=== PATIENT | female | born 1940 | race Caucasian/White ===

== ENCOUNTER 2016-11-24 15:40 | Inpatient (IN) | payer MEDICARE, BC ==
[~2016-11-24] VITALS: Ht 157.5 cm; Wt 61.9 kg
[2016-11-24 16:03] VITALS: BP 112/81; PULSE 110; RESP 16; TEMP 98.4; O2SAT 96
[2016-11-24 17:49] VITALS: BP 145/83; PULSE 88; RESP 20; O2SAT 98
[2016-11-24] MEDS ORDERED: CIPR500T2 PO (17:55)
[2016-11-24] MEDS ORDERED: LOSA100T PO (17:55)
[2016-11-24] MEDS ORDERED: METR-1 PO (17:55)
[2016-11-24 18:20] LABS: AUTOMATED NEUTROPHIL # 15.7 TH/MM3 (1.8-7.7); BASOPHIL # 0.1 TH/MM3 (0-0.2); BASOPHIL % 0.4 % (0.0-2.0); EOSINOPHIL # 0.1 TH/MM3 (0-0.4); EOSINOPHIL % 0.3 % (0.0-4.0); HEMATOCRIT 40.4 % (35.0-46.0); LYMPH % 9.9 % (9.0-44.0); LYMPHOCYTE # 1.9 TH/MM3 (1.0-4.8); MEAN CORPUSCULAR HEMOGLOBIN 28.7 PG (27.0-34.0); NEUT % 84.4 % (16.0-70.0); PLATELET COUNT 483 TH/MM3 (150-450); RED BLOOD COUNT 4.64 MIL/MM3 (4.00-5.30); RED CELL DISTRIBUTION WIDTH 13.9 % (11.6-17.2); WHITE BLOOD COUNT 18.7 TH/MM3 (4.0-11.0)
[2016-11-24 18:22] LABS: CHLORIDE 95 MEQ/L (98-107); POTASSIUM 3.6 MEQ/L (3.5-5.1); SODIUM (NA) 136 MEQ/L (136-145)
[2016-11-24 18:23] LABS: HEMO FLAGS DIFF FINAL
[2016-11-24 18:25] LABS: ANION GAP 11 MEQ/L (5-15); APTT (PATIENT) 25.7 SEC (24.3-30.1); BICARBONATE 30.2 MEQ/L (21.0-32.0); BLOOD UREA NITROGEN 18 MG/DL (7-18); INTERNATIONAL NORMALIZED RATIO 1.2 RATIO; PROTHROMBIN TIME - PATIENT 13.4 SEC (9.8-11.6)
[2016-11-24 18:28] LABS: ALT (GPT) 14 U/L (10-53); AST (GOT) 15 U/L (15-37); GLOMERULAR FILTRATION RATE 40 ML/MIN (>89)
[2016-11-24 18:30] LABS: TOTAL BILIRUBIN ADULT 0.4 MG/DL (0.2-1.0)
[2016-11-24 18:31] LABS: ALKALINE PHOSPHATASE 123 U/L (45-117)
[2016-11-24] MEDS ORDERED: SODIUM CHLOR 0.9% 1000 ML INJ 1,000 ML IV SCH (18:40)
[2016-11-24] MEDS ORDERED: MORPHINE SULFATE 4 MG/ML INJ IV PUSH ONE (18:45)
[2016-11-24] MEDS ORDERED: SODIUM CHLORIDE 0.9% FLUSH 5 ML FLUSH IVF PRN (18:45)
[2016-11-24] MEDS ORDERED: ONDANSETRON HCL 4 MG/2 ML VIAL IVP ONE (18:45)
[2016-11-24] MEDS ORDERED: IODIXANOL 320 MG/ML 10 ML VIAL (for Rad CT) IV ONE (19:28)
[2016-11-24 19:32] VITALS: BP 155/76; PULSE 88; RESP 16; TEMP 98.9; O2SAT 98
--- NOTE | 2016-11-24 19:41 | RADHPO ---
EXAM DATE/TIME: 11/24/2016 19:03 [place] COMPARISON: No previous studies available for comparison. INDICATIONS : Left lower abdominal pain. IV CONTRAST: 50 cc Visipaque (iodixanol) IV ORAL CONTRAST: No oral contrast ingested. RADIATION DOSE: 6.61 CTDIvol (mGy) MEDICAL HISTORY : Hypertension. Diverticulitis. SURGICAL HISTORY : rectal fistula. ENCOUNTER: Initial ACUITY: 2 weeks PAIN SCALE: 9/10 LOCATION: Left lower quadrant TECHNIQUE: Volumetric scanning of the abdomen and pelvis was performed. Using automated exposure control and ad justment of the mA and/or kV according to patient size, radiation dose was kept as low as reasonably achievable to obtain optimal diagnostic quality images. FINDINGS: The lung bases are clear with intact bony structures and extensive degenerative facet arthritic briggs es of the lower lumbar spine. Major retroperitoneal pelvic and inguinal vascular structures are hoang l other than atherosclerotic calcifications with no evidence of adenopathy. Bilateral kidneys are nor mal as are bilateral adrenal glands spleen and pancreas. Liver reveals multiple low density lesions c onsistent with cysts largest right lobe towards the dome 2.5 cm x 4 cm in size. The common bile duct measures 1.1 cm in width dilated without specific etiology. There are diverticuli of the colon and th riri are most extensive in the distal descending and proximal sigmoid region with a apparent 7 x 5.6 c m soft tissue mass air fluid level within this probable abscess contiguous with the: Of the left lower pelvic wall extending towards the inguinal region. CONCLUSION: Multiple abnormalities as described above. Most significant is a 7 x 5.6 cm soft tissue mass left low er pelvic wall with air fluid level in the central region and inguinal canal which is contiguous with the colon which has diverticular disease. This is most consistent with abscess formation. Joe Vincent MD on November 24, 2016 at 19:34 Board Certified Radiologist. This report was verified electronically.
--- NOTE | 2016-11-24 19:49 | PD ---
HPI Chief Complaint: Abdominal Pain Time Seen by Provider: 18:24 Travel History International Travel<30 days: No Contact w/Intl Traveler<30days: No Traveled to known affect area: No History of Present Illness HPI This 76-year-old woman who presents to the emergency room claiming of lower abdominal pain ongoing for several weeks. She's had loose stools and diarrhea as well. No fevers or chills. Some nausea and vomiting. Some decreased appetite. She saw her primary physician who treated her empirically for diverticulitis with Cipro and Flagyl about a week ago. Over the past couple days she's had worsening symptoms including worsening pain, worsening diarrhea, worsening nausea. She has presented to the emergency department. She has no history of any abdominal surgeries. No history of diverticulitis in the past. History Past Medical History Narrative Medical Hypertension Tetanus Vaccination: > 5 Years Influenza Vaccination: No Menopausal: Yes Social History Alcohol Use: No Tobacco Use: No Allergies-Medications (Allergen,Severity, Reaction): Coded Allergies: No Known Allergies (Unverified , 11/24/16) Reported Meds & Prescriptions Reported Meds & Active Scripts Active Reported Ciprofloxacin (Ciprofloxacin HCl) 500 Mg Tab 500 Mg PO BID Flagyl (Metronidazole) 500 Mg Tab 500 Mg PO TID Losartan (Losartan Potassium) 100 Mg Tab 100 Mg PO DAILY Review of Systems Except as stated in HPI: all other systems reviewed are Neg Physical Exam Narrative GENERAL: Well-appearing 76-year-old woman, uncomfortable but nontoxic. SKIN: Warm and dry. HEAD: Atraumatic. Normocephalic. EYES: Pupils equal and round. No scleral icterus. No injection or drainage. ENT: No nasal bleeding or discharge. Mucous membranes pink and moist. NECK: Trachea midline. No JVD. CARDIOVASCULAR: Regular rate and rhythm. No murmur appreciated. RESPIRATORY: No accessory muscle use. Clear to auscultation. Breath sounds equal bilaterally. GASTROINTESTINAL: Abdomen soft, not distended. The low four-quadrant is a palpable firm mass that seems suggestive of a ventral or left somewhat superior inguinal hernia versus abdominal mass. It is exquisitely tender. MUSCULOSKELETAL: No obvious deformities. No clubbing. No cyanosis. No edema. NEUROLOGICAL: Awake and alert. No obvious cranial nerve deficits. Motor grossly within normal limits. Normal speech. PSYCHIATRIC: Appropriate mood and affect; insight and judgment normal. Data Data Last Documented VS Vital Signs Date Time Temp Pulse Resp B/P Pulse Ox O2 Delivery O2 Flow Rate FiO2 11/24/16 19:32 98.9 88 16 155/76 98 Room Air Orders Complete Blood Count With Diff (11/24/16 17:43) Comprehensive Metabolic Panel (11/24/16 17:43) Act Partial Throm Time (Ptt) (11/24/16 17:43) Prothrombin Time / Inr (Pt) (11/24/16 17:43) Ct Abd/Pel W Iv Contrast(Rout) (11/24/16 18:40) Iv Access Insert/Monitor (11/24/16 18:40) NPO (11/24/16 18:40) Morphine Inj (Morphine Inj) (11/24/16 18:45) Ondansetron Inj (Zofran Inj) (11/24/16 18:45) Sodium Chlor 0.9% 1000 Ml Inj (Ns 1000 M (11/24/16 18:40) Sodium Chloride 0.9% Flush (Ns Flush) (11/24/16 18:45) Iodixanol 320 Inj (Rad Ct) (Visipaque 32 (11/24/16 19:28) Labs Laboratory Tests Test 11/24/16 18:00 White Blood Count 18.7 TH/MM3 Red Blood Count 4.64 MIL/MM3 Hemoglobin 13.3 GM/DL Hematocrit 40.4 % Mean Corpuscular Volume 87.0 FL Mean Corpuscular Hemoglobin 28.7 PG Mean Corpuscular Hemoglobin 33.0 % Concent Red Cell Distribution Width 13.9 % Platelet Count 483 TH/MM3 Mean Platelet Volume 9.7 FL Neutrophils (%) (Auto) 84.4 % Lymphocytes (%) (Auto) 9.9 % Monocytes (%) (Auto) 5.0 % Eosinophils (%) (Auto) 0.3 % Basophils (%) (Auto) 0.4 % Neutrophils # (Auto) 15.7 TH/MM3 Lymphocytes # (Auto) 1.9 TH/MM3 Monocytes # (Auto) 0.9 TH/MM3 Eosinophils # (Auto) 0.1 TH/MM3 Basophils # (Auto) 0.1 TH/MM3 CBC Comment DIFF FINAL Differential Comment Prothrombin Time 13.4 SEC Prothromb Time International 1.2 RATIO Ratio Activated Partial 25.7 SEC Thromboplast Time Sodium Level 136 MEQ/L Potassium Level 3.6 MEQ/L Chloride Level 95 MEQ/L Carbon Dioxide Level 30.2 MEQ/L Anion Gap 11 MEQ/L Blood Urea Nitrogen 18 MG/DL Creatinine 1.30 MG/DL Estimat Glomerular Filtration 40 ML/MIN Rate Random Glucose 124 MG/DL Calcium Level 9.4 MG/DL Total Bilirubin 0.4 MG/DL Aspartate Amino Transf 15 U/L (AST/SGOT) Alanine Aminotransferase 14 U/L (ALT/SGPT) Alkaline Phosphatase 123 U/L Total Protein 7.7 GM/DL Albumin 3.3 GM/DL [facility] Medical Decision Making Medical Screen Exam Complete: Yes Emergency Medical Condition: Yes Interpretation(s) Labs show some leukocytosis. Differential Diagnosis Incarcerated hernia, perforated diverticulitis, mass, torsion, other Narrative Course Medical decision making This 76-year-old woman with low four-quadrant abdominal pain is been ongoing for several weeks, worsening over the past several days, with a firm tender mass in the left lower abdomen suggestive of either mass or hernia or abscess. Labs were obtained. Patient was sent for CT imaging which was pending. Patient was signed out to the oncoming provider at 7 PM to follow-up on results of CT imaging and likely surgical consultation. Ji Estrada MD Nov 24, 2016 19:49
--- NOTE | 2016-11-24 20:16 | PD ---
Physical Exam Time Seen by Provider: 20:[address] Estrada with this patient with me to check the results of the CT abdomen/ pelvis and make a disposition, likely admission. Data Data Last Documented VS Vital Signs Date Time Temp Pulse Resp B/P Pulse Ox O2 Delivery O2 Flow Rate FiO2 11/24/16 19:32 98.9 88 16 155/76 98 Room Air Orders Complete Blood Count With Diff (11/24/16 17:43) Comprehensive Metabolic Panel (11/24/16 17:43) Act Partial Throm Time (Ptt) (11/24/16 17:43) Prothrombin Time / Inr (Pt) (11/24/16 17:43) Ct Abd/Pel W Iv Contrast(Rout) (11/24/16 18:40) Iv Access Insert/Monitor (11/24/16 18:40) NPO (11/24/16 18:40) Morphine Inj (Morphine Inj) (11/24/16 18:45) Ondansetron Inj (Zofran Inj) (11/24/16 18:45) Sodium Chlor 0.9% 1000 Ml Inj (Ns 1000 M (11/24/16 18:40) Sodium Chloride 0.9% Flush (Ns Flush) (11/24/16 18:45) Iodixanol 320 Inj (Rad Ct) (Visipaque 32 (11/24/16 19:28) Piperacil-Tazo 3.375 Gm Premix (Zosyn 3. (11/24/16 20:30) Labs Laboratory Tests Test 11/24/16 18:00 White Blood Count 18.7 TH/MM3 Red Blood Count 4.64 MIL/MM3 Hemoglobin 13.3 GM/DL Hematocrit 40.4 % Mean Corpuscular Volume 87.0 FL Mean Corpuscular Hemoglobin 28.7 PG Mean Corpuscular Hemoglobin 33.0 % Concent Red Cell Distribution Width 13.9 % Platelet Count 483 TH/MM3 Mean Platelet Volume 9.7 FL Neutrophils (%) (Auto) 84.4 % Lymphocytes (%) (Auto) 9.9 % Monocytes (%) (Auto) 5.0 % Eosinophils (%) (Auto) 0.3 % Basophils (%) (Auto) 0.4 % Neutrophils # (Auto) 15.7 TH/MM3 Lymphocytes # (Auto) 1.9 TH/MM3 Monocytes # (Auto) 0.9 TH/MM3 Eosinophils # (Auto) 0.1 TH/MM3 Basophils # (Auto) 0.1 TH/MM3 CBC Comment DIFF FINAL Differential Comment Prothrombin Time 13.4 SEC Prothromb Time International 1.2 RATIO Ratio Activated Partial 25.7 SEC Thromboplast Time Sodium Level 136 MEQ/L Potassium Level 3.6 MEQ/L Chloride Level 95 MEQ/L Carbon Dioxide Level 30.2 MEQ/L Anion Gap 11 MEQ/L Blood Urea Nitrogen 18 MG/DL Creatinine 1.30 MG/DL Estimat Glomerular Filtration 40 ML/MIN Rate Random Glucose 124 MG/DL Calcium Level 9.4 MG/DL Total Bilirubin 0.4 MG/DL Aspartate Amino Transf 15 U/L (AST/SGOT) Alanine Aminotransferase 14 U/L (ALT/SGPT) Alkaline Phosphatase 123 U/L Total Protein 7.7 GM/DL Albumin 3.3 GM/DL [facility] Medical Record Reviewed: Yes Supervised Visit with ANA LUISA: Yes Interpretation(s) The CT abdomen/pelvis shows extensive diverticuli and an apparent 7 x 5.6 cm soft tissue mass with air-fluid level in the central region. The radiologist felt this was an abscess. Differential Diagnosis Abdominal hernia, intra-abdominal abscess, abdominal wall abscess, diverticular abscess Narrative Course The patient appears to have a Pelvic wall abscess. This likely started as a diverticular abscess. Plan: I discussed the patient with Dr. Shankar and he will operate on this tomorrow morning. The patient is to be nothing by mouth tonight and will be [facility]. I discussed the patient with nurse practitioner Aida and she instructed me to admit the patient to Dr. Shaw. Physician Communication Physician Communication I discussed the patient with Dr. Shankar and nurse practitioner Aida. Diagnosis Primary Impression: Abdominal wall abscess Additional Impression: Diverticulosis of colon Admitting Information Admitting Physician Requests: Admit Kin Blum MD Nov 24, 2016 20:16
[2016-11-24] MEDS ORDERED: NALOXONE HCL 0.4 MG/ML AMP IV PRN (20:30)
[2016-11-24] MEDS ORDERED: SODIUM CHLORIDE 0.9% FLUSH 5 ML FLUSH FLUSH PRN (20:30)
[2016-11-24] MEDS ORDERED: ACETAMINOPHEN 325 MG TAB PO PRN (20:30)
[2016-11-24] MEDS ORDERED: PIPERACIL-TAZO 3.375 GM PREMIX 50 ML IV ONE (20:30)
[2016-11-24 20:34] VITALS: BP 136/67; PULSE 94; RESP 18; O2SAT 96
[2016-11-24] MEDS: SODIUM CHLORIDE 0.9% FLUSH 5 ML FLUSH FLUSH SCH (21:00)
[2016-11-24] MEDS ORDERED: MORPHINE SULFATE 4 MG/ML INJ IV PRN (21:15)
[2016-11-24] MEDS ORDERED: VANCOMYCIN INJ 1,000 MG in SODIUM CHLOR 0.9% 250 ML INJ 250 ML IV ONE (21:30)
[2016-11-24] MEDS: SODIUM CHLOR 0.9% 1000 ML INJ 1,000 ML IV SCH (22:04)
[2016-11-24 22:11] VITALS: BP 120/59; PULSE 73; RESP 16; TEMP 98.6; O2SAT 98
[2016-11-24] MEDS: ONDANSETRON HCL 4 MG/2 ML VIAL IVP PRN (23:14)
[2016-11-24 23:16] VITALS: BP 118/59; PULSE 70; RESP 16; O2SAT 98
[2016-11-25] VITALS (8 sets, daily range): BP systolic 108–127; BP diastolic 53–67; PULSE 62–78; RESP 16–22; TEMP 96–97.3; O2SAT 93–98
[2016-11-25] MEDS ORDERED: INSULIN HUMAN REGULAR 1,000 UNITS/10 ML VIAL SQ PRN (02:15)
[2016-11-25 06:05] LABS: AUTOMATED NEUTROPHIL # 11.3 TH/MM3 (1.8-7.7); BASOPHIL # 0.1 TH/MM3 (0-0.2); BASOPHIL % 0.6 % (0.0-2.0); EOSINOPHIL % 0.3 % (0.0-4.0); HEMATOCRIT 33.5 % (35.0-46.0); HEMO FLAGS DIFF FINAL; LYMPH % 11.8 % (9.0-44.0); LYMPHOCYTE # 1.7 TH/MM3 (1.0-4.8); MEAN CELL VOLUME 87.2 FL (80.0-100.0); MEAN CORPUSCULAR HGB CONC 32.2 % (32.0-36.0); MONO % 7.7 % (0.0-8.0); NEUT % 79.6 % (16.0-70.0); PLATELET COUNT 349 TH/MM3 (150-450); RED BLOOD COUNT 3.84 MIL/MM3 (4.00-5.30); RED CELL DISTRIBUTION WIDTH 14.4 % (11.6-17.2); WHITE BLOOD COUNT 14.2 TH/MM3 (4.0-11.0)
[2016-11-25] MEDS: PIPERACIL-TAZO 3.375 GM PREMIX 50 ML IV SCH ×3 (06:24→21:34)
[2016-11-25 06:26] LABS: BICARBONATE 27.1 MEQ/L (21.0-32.0); POTASSIUM 3.6 MEQ/L (3.5-5.1)
[2016-11-25] MEDS: SODIUM CHLORIDE 0.9% FLUSH 5 ML FLUSH FLUSH SCH ×2 (09:00→21:35)
[2016-11-25] MEDS: SODIUM CHLORID 0.9% 500 ML IV SCH (09:15)
[2016-11-25] MEDS: LACTATED RINGER'S 1000 ML IV SCH (09:15)
[2016-11-25] MEDS ORDERED: BUPIVACAINE/EPINEPHRINE 0.5% PF 30 ML VIAL ONE (09:52)
[2016-11-25] MEDS ORDERED: MIDAZOLAM HCL 2 MG/2 ML VIAL ONE (10:06)
[2016-11-25] MEDS ORDERED: FAMOTIDINE 20 MG/2 ML VIAL ONE (10:06)
[2016-11-25] MEDS ORDERED: DO NOT ADM ANY ANTICOAGULANT DRUGS XX PRN (11:12)
[2016-11-25] MEDS ORDERED: fentaNYL CITRATE 250 MCG/5 ML AMP ONE (11:18)
[2016-11-25] MEDS ORDERED: *morphine SULFATE 8 MG/ML PERIprocedure ONLY ONE ×3 (11:23→11:40)
[2016-11-25] MEDS: SODIUM CHLOR 0.9% 1000 ML INJ 1,000 ML IV SCH ×2 (11:40→16:25)
[2016-11-25] MEDS ORDERED: NEOSTIGMINE 3 MG/3 ML SYR IV ONE (12:00)
[2016-11-25] MEDS ORDERED: ONDANSETRON HCL 4 MG/2 ML VIAL IV PUSH ONE (12:00)
[2016-11-25] MEDS ORDERED: PHENYLEPH/NS 1000 MCG/10 ML SYR IV ONE (12:00)
[2016-11-25] MEDS ORDERED: PROPOFOL 200 MG/20 ML AMP IV ONE (12:00)
[2016-11-25] MEDS ORDERED: SODIUM CHLORIDE 0.9% FLUSH 5 ML FLUSH IVF PRN (12:15)
[2016-11-25] MEDS ORDERED: Post-op Orders (for Pharmacy) MISC XX ONE (12:15)
[2016-11-25] MEDS: ONDANSETRON HCL 4 MG/2 ML VIAL IVP PRN ×2 (13:00→21:37)
--- NOTE | 2016-11-25 16:10 | HHI.HP ---
HPI [facility] Haroldo Wilks MD Admission Diagnosis abdominal wall abscess Diagnoses: Chief Complaint: abdominal pain Travel History International Travel<30 Days: No Contact w/Intl Traveler <30 Da: No Traveled to Known Affected Are: No History of Present Illness This a 76-year-old female who is in good health, has never been admitted to this facility. History hypertension. Patient presented to the emergency room yesterday with lower abdominal pain ongoing for several weeks. She had had loose stools and diarrhea. No fever, no chills. Has had some nausea and vomiting, and poor appetite. She saw her primary care physician who was treating her empirically for diverticulitis with Cipro and Flagyl approximately a week ago. The last couple of days her symptoms worsen with increasing pain. She presented to the emergency room for evaluation. She denies prior abdominal surgeries. She had CT of the abdomen and pelvis that showed a possible pelvic abscess likely due to ruptured diverticulum. Patient denies prior history of diverticular disease. Last Impressions Abdomen/Pelvis CT 11/24/16 1840 Signed Impressions: Service Date/Time: , November 24, 2016 19:03 - CONCLUSION: Multiple abnormalities as described above. Most significant is a 7 x 5.6 cm soft tissue mass left lower pelvic wall with air fluid level in the central region and inguinal canal which is contiguous with the colon which has diverticular disease. This is most consistent with abscess formation. Joe Vincent MD Surgery education administrative assistant was notified and patient was transferred to the main hospital. Patient is not evaluated postop, she underwent I&D of abdominal abscess with wound VAC placement. Patient awakes to voice, she has minimal pain. Complaining of mild nausea. Patient is admitted for further evaluation and treatment. Review of Systems Constitutional: COMPLAINS OF: Fever, Chills, Change in appetite, DENIES: Diaphoretic episodes, Fatigue, Weight gain, Weight loss, Dizziness, Night Sweats Endocrine: DENIES: Abnorml menstrual pattern, Heat/cold intolerance, Polydipsia , Polyuria, Polyphagia Eyes: DENIES: Blurred vision, Diplopia, Eye inflammation, Eye pain, Vision loss , Photosensitivity, Double Vision Ears, nose, mouth, throat: DENIES: Tinnitus, Hearing loss, Vertigo, Nasal discharge, Oral lesions, Throat pain, Hoarseness, Ear Pain, Running Nose, Epistaxis, Sinus Pain, Toothache, Odynophagia Respiratory: DENIES: Apneas, Cough, Snoring, Wheezing, Hemoptysis, Sputum production, Shortness of breath Cardiovascular: DENIES: Chest pain, Palpitations, Syncope, Dyspnea on Exertion , PND, Lower Extremity Edema, Orthopnea, Claudication Gastrointestinal: COMPLAINS OF: Abdominal pain, Diarrhea, Nausea, Vomiting, DENIES: Black stools, Bloody stools, Constipation, Difficulty Swallowing, Anorexia Genitourinary: DENIES: Abnormal vaginal bleeding, Dysmenorrhea, Dyspareunia, Sexual dysfunction, Urinary frequency, Urinary incontinence, Urgency, Hematuria , Dysuria, Nocturia, Vaginal discharge Musculoskeletal: DENIES: Joint pain, Muscle aches, Stiffness, Joint Swelling, Back pain, Neck pain Integumentary: DENIES: Abnormal pigmentation, Pruritus, Rash, Nail changes, Breast masses, Breast skin changes, Nipple discharge Hematologic/lymphatic: DENIES: Bruising, Lymphadenopathy Immunologic/allergic: DENIES: Eczema, Urticaria Neurologic: DENIES: Abnormal gait, Headache, Localized weakness, Paresthesias, Seizures, Speech Problems, Tremor, Poor Balance Psychiatric: DENIES: Anxiety, Confusion, Mood changes, Depression, Hallucinations, Agitation, Suicidal Ideation, Homicidal Ideation, Delusions Past Family Social History Past Medical History Hypertension Rectal fistula Glaucoma Past Surgical History No surgeries Colonoscopy 5 years ago that was normal Reported Medications Reported Meds & Active Scripts Active Reported Ciprofloxacin (Ciprofloxacin HCl) 500 Mg Tab 500 Mg PO BID Flagyl (Metronidazole) 500 Mg Tab 500 Mg PO TID Losartan (Losartan Potassium) 100 Mg Tab 100 Mg PO DAILY Allergies: Coded Allergies: No Known Allergies (Unverified , 11/25/16) Active Ordered Medications Inpatient Medications Acetaminophen (Tylenol) 650 mg Q4H PRN PO TEMP > 100.4; Start 11/24/16 at 20:30 Acetaminophen/ Hydrocodone Bitart ([place] 5-325 Mg) 1 tab Q4H PRN PO PAIN WHEN TOLERATING PO MEDS; Start 11/25/16 at 13:00 Insulin Human Regular (NovoLIN R INJ) See Protocol Table ... UNSCH X1 PRN SQ SEE PROTOCOL; Start 11/25/16 at 02:15; Stop 11/26/16 at 02:14 IV Flush (NS Flush) 2 ml BID IVF ; Start 11/25/16 at 21:00 IV Flush 2 ml 2 ml UNSCH PRN IVF FLUSH AFTER USING IV ACCESS; Start 11/24/16 at 18:45; Stop 11/24/16 at 21:21; Status DC Lactated Ringer's 1,000 ml @ 30 mls/hr Q24H IV ; Start 11/25/16 at 09:15 Miscellaneous Information (Post-op Orders (for Pharmacy)) STAT ONCE XX ; Start 11/25/16 at 12:15; Stop 11/25/16 at 12:16; Status DC Morphine Sulfate (Morphine Inj) 4 mg ONCE ONCE IV PUSH Last administered on 18:53; Start 11/24/16 at 18:45; Stop 11/24/16 at 18:46; Status DC Morphine Sulfate 2 mg 2 mg Q4H PRN IV PAIN 6-10 Last administered on 11/25/16 02:00; Start 11/24/16 at 21:15 Naloxone HCl 0.4 mg 0.4 mg UNSCH PRN IV SEE LABEL COMMENTS; Start 11/24/16 at 20:30 Ondansetron HCl (Zofran Inj) 4 mg Q6H PRN IVP NAUSEA OR VOMITING Last administered on 11/25/16 13:00; Start 11/24/16 at 20:30 Piperacillin Sod/ Tazobactam Sod (Zosyn 3.375 Gm Premix) 50 ml @ 100 mls/hr Q8HR IV Last administered on 11/25/16 13:00; Start 11/25/16 at 06:00 Sodium Chloride (NS 1000 ml Inj) 1,000 ml @ 100 mls/hr Q10H IV Last administered on 11/25/16 11:40; Start 11/24/16 at 20:25 Sodium Chloride (NS 500 ml Inj) 500 ml @ 30 mls/hr [id number] IV ; Start 11/25/16 at 09:15; Stop 11/26/16 at 09:14 Vancomycin HCl 1000 mg/Sodium Chloride 250 ml @ 250 mls/hr ONCE ONCE IV Last administered on 11/24/16 22:04; Start 11/24/16 at 21:30; Stop 11/24/16 at 22:29 ; Status DC Family History Bother , complication from alcohol abuse Mother , possibly colon cancer Social History Patient is , lives with . Has grown children. Retired. No smoking, no alcohol, no substance abuse. Physical Exam Vital Signs Vital Signs Date Time Temp Pulse Resp B/P Pulse Ox O2 Delivery O2 Flow Rate FiO2 11/25/16 14:12 98 Nasal Cannula 2.00 11/25/16 12:00 97.8 72 14 115/64 97 Nasal Cannula 2 11/25/16 12:00 96.0 65 16 110/53 95 11/25/16 11:45 76 14 123/62 99 Nasal Cannula 2 11/25/16 11:30 79 16 138/69 99 Nasal Cannula 2 11/25/16 11:15 105 16 146/76 99 Nasal Cannula 2 11/25/16 11:14 98.1 98 16 144/88 98 Nasal Cannula 2 11/25/16 08:00 97.3 77 16 114/66 93 11/25/16 04:00 97.3 75 16 127/67 95 11/25/16 00:45 96.8 78 22 112/54 95 11/24/16 23:16 70 16 118/59 98 Room Air 11/24/16 22:39 16 11/24/16 22:11 98.6 73 16 120/59 98 Room Air 11/24/16 20:34 94 18 136/67 96 Room Air 11/24/16 19:32 98.9 88 16 155/76 98 Room Air 11/24/16 17:49 88 20 145/83 98 Room Air Physical Exam GENERAL: This is a well-nourished, well-developed patient, in no apparent distress. SKIN: No rashes, ecchymoses or lesions. Cool and dry. HEAD: Atraumatic. Normocephalic. No temporal or scalp tenderness. EYES: Pupils equal round and reactive. Extraocular motions intact. No scleral icterus. No injection or drainage. ENT: Nose without bleeding, purulent drainage or septal hematoma. Throat without erythema, tonsillar hypertrophy or exudate. Uvula midline. Airway patent. NECK: Trachea midline. No JVD or lymphadenopathy. Supple, nontender, no meningeal signs. CARDIOVASCULAR: Regular rate and rhythm without murmurs, gallops, or rubs. RESPIRATORY: Clear to auscultation. Breath sounds equal bilaterally. No wheezes , rales, or rhonchi. GASTROINTESTINAL: Abdomen soft, tender to palpation at surgical site. Has a wound VAC in place. Bowel sounds hypoactive 4. MUSCULOSKELETAL: Extremities without clubbing, cyanosis, or edema. No joint tenderness, effusion, or edema noted. No calf tenderness. Negative Homans sign bilaterally. NEUROLOGICAL: Awakes to voice, oriented 3. No focal deficit. Laboratory Laboratory Tests Test 11/24/16 11/25/16 18:00 05:41 White Blood Count 18.7 14.2 Red Blood Count 4.64 3.84 Hemoglobin 13.3 10.8 Hematocrit 40.4 33.5 Mean Corpuscular Volume 87.0 87.2 Mean Corpuscular Hemoglobin 28.7 28.0 Mean Corpuscular Hemoglobin 33.0 32.2 Concent Red Cell Distribution Width 13.9 14.4 Platelet Count 483 349 Mean Platelet Volume 9.7 9.7 Neutrophils (%) (Auto) 84.4 79.6 Lymphocytes (%) (Auto) 9.9 11.8 Monocytes (%) (Auto) 5.0 7.7 Eosinophils (%) (Auto) 0.3 0.3 Basophils (%) (Auto) 0.4 0.6 Neutrophils # (Auto) 15.7 11.3 Lymphocytes # (Auto) 1.9 1.7 Monocytes # (Auto) 0.9 1.1 Eosinophils # (Auto) 0.1 0.0 Basophils # (Auto) 0.1 0.1 CBC Comment DIFF FINAL DIFF FINAL Differential Comment Prothrombin Time 13.4 Prothromb Time International 1.2 Ratio Activated Partial 25.7 Thromboplast Time Sodium Level 136 140 Potassium Level 3.6 3.6 Chloride Level 95 103 Carbon Dioxide Level 30.2 27.1 Anion Gap 11 10 Blood Urea Nitrogen 18 15 Creatinine 1.30 1.02 Estimat Glomerular Filtration 40 53 Rate Random Glucose 124 95 Calcium Level 9.4 8.1 Total Bilirubin 0.4 Aspartate Amino Transf 15 (AST/SGOT) Alanine Aminotransferase 14 (ALT/SGPT) Alkaline Phosphatase 123 Total Protein 7.7 Albumin 3.3 Date/Time Procedure Status Source Growth 11/25/16 10:44 Gram Stain - Final Resulted Fluid Other 11/25/16 10:44 Body Fluid Culture Resulted Fluid Other Pending 11/24/16 21:52 Aerobic Blood Culture - Preliminary Resulted Blood Peripheral NO GROWTH IN 1 DAY 11/24/16 21:52 Anaerobic Blood Culture - Preliminary Resulted Blood Peripheral NO GROWTH IN 1 DAY Result Diagram: 2/24/17 0541 11/25/16 0541 Imaging Last Impressions Abdomen/Pelvis CT 11/24/16 1840 Signed Impressions: Service Date/Time: November 19:03 - CONCLUSION: Multiple abnormalities as described above. Most significant is a 7 x 5.6 cm soft tissue mass left lower pelvic wall with air fluid level in the central region and inguinal canal which is contiguous with the colon which has diverticular disease. This is most consistent with abscess formation. Joe Vincent MD Septic Shock Reassessment Heart: Regular rate and rhythm Lungs: Clear Skin: Warm, Dry Peripheral Pulses: Bounding Right Radial Bounding Left Radial Bounding Right Popliteal Bounding Left Popliteal Bounding Right Dorsalis Pedis Bounding Left Dorsalis Pedis Bounding Right Posterior Tibial Bounding Left Posterior Tibial Capillary Refill: Brisk Assessment and Plan Problem List: (1) Diverticulosis of colon (2) Abdominal wall abscess (3) Leukocytosis (4) Dehydration (5) Acute renal injury (6) HTN (hypertension) Assessment and Plan Admit to Dr. Hooker 76-year-old female presented to the emergency room yesterday with lower abdominal pain ongoing for several weeks, associated with nausea vomiting diarrhea. Treated as outpatient with Cipro and Flagyl for possible diverticulitis. Presented to the emergency room for further evaluation and had CT showing possible pelvic abscess likely due to ruptured diverticulum. Status post I&D of abdominal wall abscess with wound VAC placement 11/24/2016 -Continue with empiric antibiotics, follow cultures Monitor CBC Continue postop care Pain management- [place] and morphine Regular diet per surgery recommendation Acute renal injury, secondary to dehydration from nausea vomiting Continue with IV fluids Monitor BMP Hypertension, stable -Hold antihypertensive agents at this time, systolic blood pressure 110 SCDs for DVT prophylaxis Protonix for GI prophylaxis Plan of care has been discussed with the patient, attending and registered nurse. Further management of the patient will be dependent on the hospital course This patient was seen by myself and Dr. Shaw, this H&P is written on her behalf Physician Certification 2 Midnight Certification Type: Admission for Inpatient Services Order for Inpatient Services The services are ordered in accordance with Medicare regulations or non- Medicare payer requirements, as applicable. In the case of services not specified as inpatient-only, they are appropriately provided as inpatient services in accordance with the 2-midnight benchmark. Estimated LOS (days): 2 2 days is the estimated time the patient will need to remain in the hospital, assuming treatment plan goals are met and no additional complications. Post-Hospital Plan: Home Health Problem Qualifiers (1) Diverticulosis of colon: Qualified Code: K57.30 - Diverticulosis of large intestine without hemorrhage (2) Leukocytosis: Qualified Code: D72.829 - Leukocytosis, unspecified type (3) HTN (hypertension): Qualified Code: I10 - Essential hypertension Tanika Cobos Nov 25, 2016 16:10
--- NOTE | 2016-11-25 17:19 | EKG ---
Date Performed: 11/25/2016 Time Performed: 10:06:52 PTAGE: 76 years EKG: Sinus rhythm NORMAL ECG NO PREVIOUS TRACING DOCTOR: Katelyn Hernandez Interpretating Date/Time 11/25/2016 17:15:22
[2016-11-25] MEDS: SODIUM CHLORIDE 0.9% FLUSH 5 ML FLUSH IVF SCH (21:00)
[2016-11-26] VITALS (7 sets, daily range): BP systolic 119–147; BP diastolic 58–68; PULSE 67–101; RESP 18–20; TEMP 96.6–98; O2SAT 91–96
[2016-11-26] MEDS: SODIUM CHLORID 0.9% 500 ML IV SCH (01:55)
[2016-11-26] MEDS: SODIUM CHLOR 0.9% 1000 ML INJ 1,000 ML IV SCH ×3 (02:25→22:25)
[2016-11-26] MEDS: PIPERACIL-TAZO 3.375 GM PREMIX 50 ML IV SCH ×3 (05:51→20:00)
[2016-11-26] MEDS: SODIUM CHLORIDE 0.9% FLUSH 5 ML FLUSH IVF SCH ×2 (09:00→23:06)
[2016-11-26] MEDS: LACTATED RINGER'S 1000 ML IV SCH (09:15)
[2016-11-26] MEDS: SODIUM CHLORIDE 0.9% FLUSH 5 ML FLUSH FLUSH SCH (09:34)
--- NOTE | 2016-11-26 12:35 | HHI.PR ---
Subjective Subjective Remarks Resting in bed Alert, conversational No acute pain except at abdominal wall infection site, lower mid abdomen NoBM 2 days Clear liquids, small amounts Wound VAC, draining clear pink fluid, or bloody drainage, small amount (Ericka Ortiz) Review of Systems Constitutional Constitutional: Fatigue (generalized), Weakness (realized) Constitutional Remarks 10 point ROS done. Positives noted otherwise negative or unremarkable ROS ( Ericka Ortiz) GI/Abdomen GI/Abdominal Exam: Abdominal Pain (at mid lower quadrants, wound VAC on) ( Ericka Ortiz) Musculoskeletal MS: Weakness, Stiffness, Discomfort/Pain (abdomen, mild to moderate) (Ericka Ortiz) Psychiatric Psychiatric: Normal Mood (Ericka Ortiz) Vitals/Results Intake & Output 11/25/16 11/25/16 11/26/16 15:00 23:00 07:00 Intake Total 1100 ml 270 ml 240 ml Output Total 85 ml 400 ml 200 ml Balance 1015 ml -130 ml 40 ml Intake Oral 0 ml 270 ml 240 ml IV Total 300 ml Other 800 ml Output Urine Total 75 ml 400 ml 200 ml Drainage Total 0 ml Estimated Blood Loss 10 ml # Voids 2 # Bowel Movements 1 0 Vital Signs Vital Signs Date Time Temp Pulse Resp B/P Pulse Ox O2 Delivery O2 Flow Rate FiO2 11/26/16 10:06 92 21 11/26/16 08:00 98.0 83 18 140/63 91 11/26/16 00:00 96.6 67 18 119/58 96 11/25/16 20:50 95 Nasal Cannula 2.00 11/25/16 20:00 96.4 71 16 108/55 98 11/25/16 16:00 96.0 62 16 126/64 95 11/25/16 16:00 96.0 62 16 126/64 95 11/25/16 14:12 98 Nasal Cannula 2.00 (Ericka Ortiz) CBC/BMP: 11/25/16 0541 11/25/16 0541 Imaging Remarks Last Impressions Abdomen/Pelvis CT 11/24/16 1840 Signed Impressions: Service Date/Time: November 19:03 - CONCLUSION: Multiple abnormalities as described above. Most significant is a 7 x 5.6 cm soft tissue mass left lower pelvic wall with air fluid level in the central region and inguinal canal which is contiguous with the colon which has diverticular disease. This is most consistent with abscess formation. Joe Vincent MD Current Medications Active Medications Acetaminophen/ Hydrocodone Bitart ([place] 5-325 Mg) 1 tab Q4H PRN PO; Start at 13:00 IV Flush (NS Flush) 2 ml BID IVF; Start 11/25/16 at 21:00 (Esperance,Ericka M. DELINQUENCY COUNSELOR ) Physical Exam General General Appearance: Well Developed, Well Nourished, No Acute Distress ([place], Ericka M. DELINQUENCY COUNSELOR) Eyes Eye Exam: Pupils Equal, Pupils Reactive, Sclera White ([place]per[place],Ericka M. DELINQUENCY COUNSELOR) Ears & Nose Ears & Nose Exam: Nasal Mucosa [place] (Angel,Ericka M. DELINQUENCY COUNSELOR) Throat Throat Exam: Oral Mucosa [place] & Moist (AngelEricka M. DELINQUENCY COUNSELOR) Neck Neck Exam: Neck Supple, Trachea Midline ([place],Ericka M. DELINQUENCY COUNSELOR) Pulmonary Resp Exam: Clear Bilaterally, Breath Sounds Equal ([place],Ericka M. DELINQUENCY COUNSELOR) Cardiology CV Exam: Regular (Esperance,Ericka M. DELINQUENCY COUNSELOR) Gastrointestinal/Abdomen GI Exam: Soft (upper quadrants), Bowel Sounds Present (increased in upper quadrants, lower quadrants guarded secondary to acute pain with palpation) GI Remarks Wound VAC on lower abdomen (Angel,Ericka M. DELINQUENCY COUNSELOR) Musculoskeletal MS Exam: Joints Intact (Angel,Ericka M. DELINQUENCY COUNSELOR) Integumentary Skin Exam: Clear, Warm, Dry, Intact Skin Remarks Abdominal wound VAC on, draining small amounts of bloody to light pink tinged serous discharge ([place],Ericka M. DELINQUENCY COUNSELOR) Extremeties Extremities Exam: No Edema, Pedal Pulses Palpable (Angel,Ericka M. DELINQUENCY COUNSELOR) Neurologic Neuro Exam: Alert, Awake, Oriented, Speech Clear, Moving All Extremities ( Angel,Ericka M. DELINQUENCY COUNSELOR) Assessment/Plan Assessment/Plan (1) Diverticulosis of colon (2) Abdominal wall abscess (3) Leukocytosis (4) Dehydration (5) Acute renal injury (6) HTN (hypertension) 7. Constipation, mild Assessment and Plan 76-year-old female presented to the emergency room yesterday with lower abdominal pain ongoing for several weeks, associated with nausea vomiting diarrhea. Treated as outpatient with Cipro and Flagyl for possible diverticulitis. Presented to the emergency room for further evaluation and had CT showing possible pelvic abscess likely due to ruptured diverticulum. Status post I&D of abdominal wall abscess with wound VAC placement 11/24/2016. Plan for follow-up I&D surgical procedure Monday -Continue with empiric antibiotics, follow cultures Monitor CBC, hemoglobin 10.8, white count 14.2 resolving to normal ranges, versus initial count. Leukocytosis resolving Continue postop care Pain management- [place] and morphine, mild to moderate pain meds needed Regular diet per surgery recommendation Monitor bowel regimen, no BM for 2 days, the patient has had little to minimal by mouth and food intake. When necessary meds will be available if needed. This has been discussed with patient CBC BMP for a.m. monitoring Acute renal injury, secondary to dehydration from nausea vomiting Continue with IV fluids Trends essentially unchanged monitoring labs Hypertension, stable -Hold antihypertensive agents at this time, systolic blood pressure 110 SCDs for DVT prophylaxis Protonix for GI prophylaxis Plan of care has been discussed with the patient, This patient was seen by myself and Dr. Shaw, case discussed (Ericka Ortiz) Assessment/Plan patient seen and examined agree with above assessment and plan continue current care discussed with patient discussed with Ericka LORENZ (Norma Shaw MD) Ericka Ortiz Nov 26, 2016 12:35 Norma Shaw MD Nov 26, 2016 15:59
[2016-11-26] MEDS: ACETAMINOPHEN/HYDROcodone 325 MG/5 MG TAB PO PRN ×2 (14:35→19:42)
--- NOTE | 2016-11-26 18:19 | MP ---
cc: JAMIR SHANKAR DATE OF SURGERY 11/25/16 PREOPERATIVE DIAGNOSIS Low abdominal abscess 11 x 11 cm on the left side of her abdomen. POSTOPERATIVE DIAGNOSIS Low abdominal abscess 11 x 11 cm on the left side of her abdomen. PROCEDURE Drainage of left lower quadrant abdominal wall abscess with placement of VAC dressing with sharp debridement of necrotic subcutaneous tissue and fascia. ANESTHESIA General SURGEON Dr. Farnaz Shankar INDICATIONS This is a pleasant 76-year-old female who was admitted to the hospital after she complained of swelling in her left low abdomen. CT revealed an abscess with air fluid levels. Plans were made for operative intervention. Of note, the radiologist had brought up possibility of diverticular abscess, but she did not have any clinical symptomatology consistent with an intra-abdominal process. The abscess was close to the abdominal fascia and close to where she has some diverticular disease. PROCEDURE IN DETAIL The patient was taken tot he operating room, placed in supine position. After anesthesia, her abdomen is prepped with Betadine. Time-out was done. The abscess cavity measures 11 x 11 cm just in the left lower abdomen along the waistline. A horizontal incision is made along this apex of the abscess cavity after anesthetizing with Marcaine solution. We dissect down through skin and subcutaneous tissue and the fascia. She has no inguinal hernia, but she does have just gross purulent material within the deep subcutaneous tissue which is evacuated after it is cultured. I dissect down all the way to the fascia. It looks like the anterior rectus fascia is necrotic and this is sharply debrided with sharp knives and scissors and the electrocautery device and sent down for pathological analysis. I then irrigate copiously with a liter of saline. Because of the amount of inflammatory process, I placed a VAC. Prior to doing so, I carefully inspected circumferentially and to the deep base of the abscess cavity. I do not see any communication to the abdominal cavity, although it is fairly indurated. There is no stool spillage. There was not much of any odor to this abscess cavity. After we then irrigated and I did not see any connection to the abdominal cavity. The small sponge of the VAC is then applied in the typical fashion to 125 mmHg of suction. The patient was extubated, returned to recovery in no immediate postop complications. Jamir Shankar MD JCATHY/ /12:01 PM /6:02 PM MTDManuel
--- NOTE | 2016-11-26 22:36 | HHI.PR ---
Subjective Subjective Notes pain ok Objective Vitals/I&O Vital Signs Date Time Temp Pulse Resp B/P Pulse Ox O2 Delivery O2 Flow Rate FiO2 11/26/16 20:00 96.7 95 20 147/68 94 11/26/16 10:06 21 11/25/16 20:50 Nasal Cannula 2.00 Labs Date/Time Procedure Status Source Growth 11/25/16 10:44 Gram Stain - Final Resulted Fluid Other 11/25/16 10:44 Body Fluid Culture - Preliminary Resulted Fluid Other NO GROWTH IN 24 HOURS. 11/24/16 21:52 Aerobic Blood Culture - Preliminary Resulted Blood Peripheral NO GROWTH IN 2 DAYS 11/24/16 21:52 Anaerobic Blood Culture - Preliminary Resulted Blood Peripheral NO GROWTH IN 2 DAYS Abdomen: Non-distended, Non-tender Narrative Exam VAC in place lower abdomen A/P Assessment and Plan 76yo female s/p ID and VAC placement for abscess, stable. - continue ABX - continue VAC Terry Sheets MD Nov 26, 2016 22:36
[2016-11-27] VITALS (7 sets, daily range): BP systolic 108–166; BP diastolic 61–84; PULSE 81–98; RESP 18–20; TEMP 97.2–99.6; O2SAT 92–97
[2016-11-27] MEDS: PIPERACIL-TAZO 3.375 GM PREMIX 50 ML IV SCH ×4 (02:00→20:00)
[2016-11-27] MEDS: ACETAMINOPHEN/HYDROcodone 325 MG/5 MG TAB PO PRN ×3 (03:42→13:58)
[2016-11-27 07:35] LABS: HEMATOCRIT 31.6 % (35.0-46.0); MEAN CELL VOLUME 87.1 FL (80.0-100.0); MEAN CORPUSCULAR HEMOGLOBIN 28.3 PG (27.0-34.0); MEAN CORPUSCULAR HGB CONC 32.5 % (32.0-36.0); PLATELET COUNT 320 TH/MM3 (150-450); RED BLOOD COUNT 3.63 MIL/MM3 (4.00-5.30); RED CELL DISTRIBUTION WIDTH 14.7 % (11.6-17.2); REVIEW FLAG FINAL; WHITE BLOOD COUNT 13.4 TH/MM3 (4.0-11.0)
[2016-11-27 08:11] LABS: BICARBONATE 31.5 MEQ/L (21.0-32.0); POTASSIUM 3.4 MEQ/L (3.5-5.1)
[2016-11-27] MEDS: SODIUM CHLOR 0.9% 1000 ML INJ 1,000 ML IV SCH (08:55)
[2016-11-27] MEDS: SODIUM CHLORIDE 0.9% FLUSH 5 ML FLUSH IVF SCH ×2 (08:56→20:40)
--- NOTE | 2016-11-27 09:08 | HHI.PR ---
Subjective Subjective Remarks minimal pain mild nausea appetite slowly improving no fever + cough, mild wheezing no cp BP elevated 160s Review of Systems Constitutional Constitutional Remarks 12 point ROS completed, neg except as noted above GI/Abdomen GI/Abdominal Exam: Abdominal Pain (at mid lower quadrants, wound VAC on) Vitals/Results Intake & Output 11/26/16 11/26/16 11/27/16 14:59 22:59 06:59 Intake Total 240 ml Balance 240 ml Intake Oral 240 ml # Voids 1 2 1 # Bowel Movements 0 0 0 Vital Signs Vital Signs Date Time Temp Pulse Resp B/P Pulse Ox O2 Delivery O2 Flow Rate FiO2 11/27/16 05:12 98.2 98 18 166/81 95 11/27/16 00:06 97.8 86 20 108/68 94 11/26/16 21:33 94 11/26/16 20:00 96.7 95 20 147/68 94 11/26/16 16:00 96.8 89 18 134/63 93 11/26/16 12:00 96.6 101 18 146/67 95 11/26/16 10:06 92 21 CBC/BMP: 11/27/16 0700 11/27/16 0700 Lab Results Laboratory Tests Test 11/27/16 07:00 White Blood Count 13.4 TH/MM3 Red Blood Count 3.63 MIL/MM3 Hemoglobin 10.3 GM/DL Hematocrit 31.6 % Mean Corpuscular Volume 87.1 FL Mean Corpuscular Hemoglobin 28.3 PG Mean Corpuscular Hemoglobin 32.5 % Concent Red Cell Distribution Width 14.7 % Platelet Count 320 TH/MM3 Mean Platelet Volume 9.8 FL Sodium Level 142 MEQ/L Potassium Level 3.4 MEQ/L Chloride Level 103 MEQ/L Carbon Dioxide Level 31.5 MEQ/L Anion Gap 8 MEQ/L Blood Urea Nitrogen 11 MG/DL Creatinine 0.99 MG/DL Estimat Glomerular Filtration 55 ML/MIN Rate Random Glucose 86 MG/DL Calcium Level 8.3 MG/DL Physical Exam General General Appearance: Well Developed, Well Nourished, No Acute Distress Eyes Eye Exam: Pupils Equal, Pupils Reactive, Sclera White Ears & Nose Ears & Nose Exam: Nasal Mucosa [place] Throat Throat Exam: Oral Mucosa [place] & Moist Neck Neck Exam: Neck Supple, Trachea Midline Pulmonary Resp Exam: Clear Bilaterally, Breath Sounds Equal Cardiology CV Exam: Regular Gastrointestinal/Abdomen GI Exam: Soft, Non-Tender, Bowel Sounds Present, Positive Bowel Movement, Non- Distended GI Remarks Wound vac lower abdomen Musculoskeletal MS Exam: Joints Intact Integumentary Skin Exam: Clear, Warm, Dry, Intact Extremeties Extremities Exam: No Edema, Pedal Pulses Palpable Neurologic Neuro Exam: Alert, Awake, Oriented, Speech Clear, Moving All Extremities, No Focal Deficits Psychiatric Psych Exam: Appropriate Responses VTE Prophylaxis VTE Prophylaxis Device: SCDs PUD Prophylasis PUD Prophylaxis: Protonix Assessment/Plan Problem List: (1) Diverticulosis of colon (2) Abdominal wall abscess (3) Dehydration (4) Leukocytosis (5) HTN (hypertension) (6) Acute renal injury Assessment/Plan 76-year-old female presented to the emergency room yesterday with lower abdominal pain ongoing for several weeks, associated with nausea vomiting diarrhea. Treated as outpatient with Cipro and Flagyl for possible diverticulitis. Presented to the emergency room for further evaluation and had CT showing possible pelvic abscess likely due to ruptured diverticulum. Status post I&D of abdominal wall abscess with wound VAC placement 11/24/2016 -Continue with empiric antibiotics, follow cultures Continue postop care Pain management- [place] and morphine Regular diet per surgery recommendation -Bowel regimen, had small BM Acute renal injury, secondary to dehydration from nausea vomiting-improving Continue with IV fluids-dec. to KVO Monitor BMP Hypertension, elevated -Resume home meds SCDs for DVT prophylaxis, Add Heparin SQ Protonix for GI prophylaxis Labs reviewed, replace K noted wheezing, some cough, add Duonebs PRN OOB IS D/W RN D/W Dr. Shaw D/W pt. This patient was seen by myself and Dr. Shaw, this note is written on her behalf Problem Qualifiers (1) Diverticulosis of colon: Qualified Code: K57.30 - Diverticulosis of large intestine without hemorrhage (2) Leukocytosis: Qualified Code: D72.829 - Leukocytosis, unspecified type (3) HTN (hypertension): Qualified Code: I10 - Essential hypertension Tanika Cobos Nov 27, 2016 09:08
[2016-11-27] MEDS: LACTATED RINGER'S 1000 ML IV SCH (09:15)
[2016-11-27] MEDS ORDERED: POTASSIUM CL 40 MEQ/30 ML LIQ UDC PO ONE (10:00)
[2016-11-27] MEDS ORDERED: RESP: ALBUTEROL 2.5 MG/IPRATROPIUM 0.5 MG NEB (PRN) NEB (10:00)
[2016-11-27] MEDS ORDERED: MAGNESIUM HYDROXIDE SUSP 30 ML CUP PO PRN (10:00)
[2016-11-27] MEDS: HEPARIN SODIUM - SQ 10,000 UNITS/ML VIAL SQ SCH ×2 (10:30→20:40)
[2016-11-27] MEDS: LOSARTAN 50 MG TAB PO SCH (10:30)
[2016-11-27] MEDS: FLUCONAZOLE 400 MG PREMIX BAG 200 ML IV SCH (11:26)
--- NOTE | 2016-11-27 13:08 | HHI.PR ---
Subjective Subjective Notes DAILY PROGRESS NOTE FOR SURGICAL ATTENDING, DR. JAMIR SHANKAR Feeling better Objective Vitals/I&O Vital Signs Date Time Temp Pulse Resp B/P Pulse Ox O2 Delivery O2 Flow Rate FiO2 11/27/16 12:00 97.3 81 18 121/61 94 11/26/16 10:06 21 11/25/16 20:50 Nasal Cannula 2.00 Labs Allergies Coded Allergies Type Severity Reaction Last Updated Verified No Known Allergies 11/25/16 No Recent Impressions Abdomen/Pelvis CT 11/24/16 1840 Signed Impressions: Service Date/Time: November 19:03 - CONCLUSION: Multiple abnormalities as described above. Most significant is a 7 x 5.6 cm soft tissue mass left lower pelvic wall with air fluid level in the central region and inguinal canal which is contiguous with the colon which has diverticular disease. This is most consistent with abscess formation. Joe Vincent MD / 06:00 18:00 06:00 18:00 06:00 18:00 Intake Total 500 ml 1220 ml 390 ml 240 ml Output Total 285 ml 400 ml Balance 500 ml 935 ml -10 ml 240 ml Intake Oral 0 ml 120 ml 390 ml 240 ml IV Total 500 ml 300 ml Other 800 ml Output Urine Total 275 ml 400 ml Drainage Total 0 ml Estimated Blood Loss 10 ml # Voids 3 2 1 3 # Bowel Movements 0 1 0 0 0 Laboratory Tests Test 11/24/16 11/25/16 11/27/16 18:00 05:41 07:00 White Blood Count 18.7 TH/MM3 14.2 TH/MM3 13.4 TH/MM3 Red Blood Count 4.64 MIL/MM3 3.84 MIL/MM3 3.63 MIL/MM3 Hemoglobin 13.3 GM/DL 10.8 GM/DL 10.3 GM/DL Hematocrit 40.4 % 33.5 % 31.6 % Mean Corpuscular Volume 87.0 FL 87.2 FL 87.1 FL Mean Corpuscular Hemoglobin 28.7 PG 28.0 PG 28.3 PG Mean Corpuscular Hemoglobin 33.0 % 32.2 % 32.5 % Concent Red Cell Distribution Width 13.9 % 14.4 % 14.7 % Platelet Count 483 TH/MM3 349 TH/MM3 320 TH/MM3 Mean Platelet Volume 9.7 FL 9.7 FL 9.8 FL Neutrophils (%) (Auto) 84.4 % 79.6 % Lymphocytes (%) (Auto) 9.9 % 11.8 % Monocytes (%) (Auto) 5.0 % 7.7 % Eosinophils (%) (Auto) 0.3 % 0.3 % Basophils (%) (Auto) 0.4 % 0.6 % Neutrophils # (Auto) 15.7 TH/MM3 11.3 TH/MM3 Lymphocytes # (Auto) 1.9 TH/MM3 1.7 TH/MM3 Monocytes # (Auto) 0.9 TH/MM3 1.1 TH/MM3 Eosinophils # (Auto) 0.1 TH/MM3 0.0 TH/MM3 Basophils # (Auto) 0.1 TH/MM3 0.1 TH/MM3 CBC Comment DIFF FINAL DIFF FINAL Differential Comment Prothrombin Time 13.4 SEC Prothromb Time International 1.2 RATIO Ratio Activated Partial 25.7 SEC Thromboplast Time Sodium Level 136 MEQ/L 140 MEQ/L 142 MEQ/L Potassium Level 3.6 MEQ/L 3.6 MEQ/L 3.4 MEQ/L Chloride Level 95 MEQ/L 103 MEQ/L 103 MEQ/L Carbon Dioxide Level 30.2 MEQ/L 27.1 MEQ/L 31.5 MEQ/L Anion Gap 11 MEQ/L 10 MEQ/L 8 MEQ/L Blood Urea Nitrogen 18 MG/DL 15 MG/DL 11 MG/DL Creatinine 1.30 MG/DL 1.02 MG/DL 0.99 MG/DL Estimat Glomerular Filtration 40 ML/MIN 53 ML/MIN 55 ML/MIN Rate Random Glucose 124 MG/DL 95 MG/DL 86 MG/DL Calcium Level 9.4 MG/DL 8.1 MG/DL 8.3 MG/DL Total Bilirubin 0.4 MG/DL Aspartate Amino Transf 15 U/L (AST/SGOT) Alanine Aminotransferase 14 U/L (ALT/SGPT) Alkaline Phosphatase 123 U/L Total Protein 7.7 GM/DL Albumin 3.3 GM/DL Procedure Category Date Status Time Complete Blood Count LAB 11/24/16 Complete With Diff 17:43 Comprehensive LAB 11/24/16 Complete Metabolic Panel 17:43 Act Partial Throm LAB 11/24/16 Complete Time (Ptt) 17:43 Prothrombin Time / LAB 11/24/16 Complete Inr (Pt) 17:43 Ct Abd/Pel W Iv RADCT 11/24/16 Resulted Contrast(Rout) 18:40 Iv Access TX 11/24/16 Transmitted Insert/Monitor 18:40 Morphine Inj MED 11/24/16 Complete (Morphine Inj) 18:45 Ondansetron Inj MED 11/24/16 Complete (Zofran Inj) 18:45 Sodium Chlor 0.9% MED 11/24/16 Complete 1000 Ml Inj (Ns 1000 M 18:40 Sodium Chloride 0.9% MED 11/24/16 Complete Flush (Ns Flush) 18:45 Iodixanol 320 Inj MED 11/24/16 Complete (Rad Ct) (Visipaque 32 19:28 Piperacil-Tazo 3.375 MED 11/24/16 Complete Gm Premix (Zosyn 3. 20:30 Admit Order (Ed Use ADMITTING 11/24/16 Transmitted Only) 20:34 Admit Order (Ed Use ADMITTING 11/24/16 Transmitted Only) 20:36 Admit To Inpatient ADMITTING 11/24/16 Transmitted Code Status CODE 11/24/16 Transmitted 20:25 Vital Signs (Adult) LISET 11/24/16 In Process 20:25 Sodium Chlor 0.9% MED 11/24/16 Complete 1000 Ml Inj (Ns 1000 M 20:25 Sodium Chloride 0.9% MED 11/24/16 Complete Flush (Ns Flush) 20:30 Sodium Chloride 0.9% MED 11/24/16 Complete Flush (Ns Flush) 21:00 Acetaminophen MED 11/24/16 In Process (Tylenol) 20:30 Ondansetron Inj MED 11/24/16 In Process (Zofran Inj) 20:30 Basic Metabolic Panel LAB 11/25/16 Complete (Bmp) 06:00 Complete Blood Count LAB 11/25/16 Complete With Diff 06:00 Blood Culture JACK 11/24/16 In Process 20:25 Scd Bilateral/Knee LISET 11/24/16 In Process High 20:25 Naloxone Inj (Narcan MED 11/24/16 In Process Inj) 20:30 Vancomycin Inj MED 11/24/16 Complete (Vancomycin Inj) 21:30 Piperacil-Tazo 3.375 MED 11/25/16 Complete Gm Premix (Zosyn 3. 06:00 Consult General CONS 11/24/16 Transmitted Surgery Morphine Inj MED 11/24/16 In Process (Morphine Inj) 21:15 (Hub Use Only)Inp Phy CONS 11/24/16 Transmitted Cons/Ref ^ Diet Progression LISET 11/25/16 In Process Instruction 01:49 ^ Obtain LISET 11/25/16 In Process 01:49 ^ Lab Studies LISET 11/25/16 In Process 01:49 ^ Write Order LISET 11/25/16 In Process 01:49 Scd / Pernell / Foot Pump LISET 11/25/16 In Process 01:49 ^ Iv Setup For Or LISET 11/25/16 In Process 01:49 ^ IV LISET 11/25/16 In Process 01:49 ^ Iv Piggyback For Or LISET 11/25/16 In Process 01:49 Bedside Glucose LISET 11/25/16 Complete 01:49 ^ Medication LISET 11/25/16 In Process Indications 01:49 Sleeve, Knee SPD 11/25/16 Logged Sequential Pernell Pr 01:49 Lactated Ringer's MED 11/25/16 In Process 1000 Ml Inj (Lr 1000 M 09:15 Sodium Chlorid 0.9% MED 11/25/16 Complete 500 Ml Inj (Ns 500 M 09:15 Insulin Human Regular MED 11/25/16 Complete Inj (Novolin R Inj 02:15 Consult Kishore Nfs CONS 11/25/16 Transmitted ^ Consent LISET 11/25/16 In Process 08:17 Bupivacaine-Epi Pf MED 11/25/16 Complete 0.5% Inj (Sensorcaine 09:52 Electrocardiogram CAV 11/25/16 Resulted Midazolam Inj (Versed MED 11/25/16 Complete Inj) 10:06 Famotidine Inj MED 11/25/16 In Process (Pepcid Inj) 10:06 Fentanyl Inj MED 11/25/16 Complete (Fentanyl Inj) 11:18 Fluid Culture And JACK 11/25/16 In Process Gram Stain 11:19 *Morphine Inj MED 11/25/16 Complete (*Morphine Inj 11:23 *Morphine Inj MED 11/25/16 Complete (*Morphine Inj 11:28 Misc Nursing MED 11/25/16 Complete Information 11:12 *Morphine Inj MED 11/25/16 Complete (*Morphine Inj 11:40 Activity Oob Ad Rachel LISET 11/25/16 In Process 12:02 Remove Urinary LISET 11/25/16 In Process Catheter 12:02 Diet Regular Basic DIET 11/25/16 Transmitted Lunch Sodium Chloride 0.9% MED 11/25/16 In Process Flush (Ns Flush) 12:15 Sodium Chloride 0.9% MED 11/25/16 In Process Flush (Ns Flush) 21:00 Resp Incentive RSP 11/25/16 Complete Spirometry Post-Op Orders (For MED 11/25/16 Complete Pharmacy) (Post-Op O 12:15 ^ Vac Dressing LISET 11/25/16 In Process 12:04 ^ Vac Dressing Care LISET 11/25/16 In Process 12:04 ^ Vac Dressing To Be LISET 11/25/16 In Process Used 12:04 ^ Vac Pressure Setting LISET 11/25/16 In Process 12:04 ^ Vac Setting LISET 11/25/16 In Process 12:04 ^ Vac Therapy Setting LISET 11/25/16 In Process 12:04 ^ Consent LISET 11/25/16 In Process 12:06 Class Iv Pacu Ea 30 [facility] 11/25/16 Complete MIN General/Pacu [facility] 11/25/16 Complete Post Anesthesia Oxygen [facility] 11/25/16 Complete Acetamin-Hydrocod MED 11/25/16 In Process 325-5 Mg ([place] 5-325 13:00 ^ Anticoagulant Alert LISET 11/25/16 In Process ^ Sling LISET 11/25/16 In Process Resp Oxygen Geraldo C RSP 11/25/16 Logged Titrat 1-4 L Equip, Vac Unit Use Of SPD 11/25/16 Logged 22:28 Cbc No Diff, Includes LAB 11/27/16 Complete Plts 06:00 Basic Metabolic Panel LAB 11/27/16 Complete (Bmp) 06:00 Piperacil-Tazo 3.375 MED 11/26/16 In Process Gm Premix (Zosyn 3. 14:00 Losartan (Cozaar) MED 11/27/16 In Process 10:00 Potassium Cl 40 MED 11/27/16 Complete Meq/30 Ml Liq (Kcl 40 10:00 Magnesium Hydroxide MED 11/27/16 In Process Liq (Milk Of Magnesi 10:00 Heparin Inj (Heparin MED 11/27/16 In Process Inj) 10:00 Albuterol-Ipratropium MED 11/27/16 In Process Neb (Duoneb Neb) 10:00 Fluconazole 400 Mg MED 11/27/16 In Process Premix Bag (Diflucan 11:00 Vital Signs Date Time Temp Pulse Resp B/P Pulse Ox O2 Delivery O2 Flow Rate FiO2 11/27/16 12:00 97.3 81 18 121/61 94 11/27/16 08:00 97.2 93 19 166/67 97 11/27/16 05:12 98.2 98 18 166/81 95 11/27/16 00:06 97.8 86 20 108/68 94 11/26/16 21:33 94 11/26/16 20:00 96.7 95 20 147/68 94 11/26/16 16:00 96.8 89 18 134/63 93 11/26/16 12:00 96.6 101 18 146/67 95 11/26/16 10:06 92 21 11/26/16 08:00 98.0 83 18 140/63 91 11/26/16 00:00 96.6 67 18 119/58 96 11/25/16 20:50 95 Nasal Cannula 2.00 11/25/16 20:00 96.4 71 16 108/55 98 11/25/16 16:00 96.0 62 16 126/64 95 11/25/16 16:00 96.0 62 16 126/64 95 11/25/16 14:12 98 Nasal Cannula 2.00 11/25/16 12:00 97.8 72 14 115/64 97 Nasal Cannula 2 11/25/16 12:00 96.0 65 16 110/53 95 11/25/16 11:45 76 14 123/62 99 Nasal Cannula 2 11/25/16 11:30 79 16 138/69 99 Nasal Cannula 2 11/25/16 11:15 105 16 146/76 99 Nasal Cannula 2 11/25/16 11:14 98.1 98 16 144/88 98 Nasal Cannula 2 11/25/16 08:00 97.3 77 16 114/66 93 11/25/16 04:00 97.3 75 16 127/67 95 11/25/16 00:45 96.8 78 22 112/54 95 11/24/16 23:16 70 16 118/59 98 Room Air 11/24/16 22:39 16 11/24/16 22:11 98.6 73 16 120/59 98 Room Air 11/24/16 20:34 94 18 136/67 96 Room Air 11/24/16 19:32 98.9 88 16 155/76 98 Room Air 11/24/16 17:49 88 20 145/83 98 Room Air 11/24/16 16:03 98.4 110 16 112/81 96 Laboratory Tests Test 11/27/16 07:00 White Blood Count 13.4 Red Blood Count 3.63 Hemoglobin 10.3 Hematocrit 31.6 Mean Corpuscular Volume 87.1 Mean Corpuscular Hemoglobin 28.3 Mean Corpuscular Hemoglobin 32.5 Concent Red Cell Distribution Width 14.7 Platelet Count 320 Mean Platelet Volume 9.8 Sodium Level 142 Potassium Level 3.4 Chloride Level 103 Carbon Dioxide Level 31.5 Anion Gap 8 Blood Urea Nitrogen 11 Creatinine 0.99 Estimat Glomerular Filtration 55 Rate Random Glucose 86 Calcium Level 8.3 Date/Time Procedure Status Source Growth 11/25/16 10:44 Gram Stain - Final Resulted Fluid Other 11/25/16 10:44 Body Fluid Culture - Preliminary Resulted Yeast Species 11/24/16 21:52 Aerobic Blood Culture - Preliminary Resulted Blood Peripheral NO GROWTH IN 3 DAYS 11/24/16 21:52 Anaerobic Blood Culture - Preliminary Resulted Blood Peripheral NO GROWTH IN 3 DAYS Radiology Last Impressions Abdomen/Pelvis CT 11/24/16 1840 Signed Impressions: Service Date/Time: November 19:03 - CONCLUSION: Multiple abnormalities as described above. Most significant is a 7 x 5.6 cm soft tissue mass left lower pelvic wall with air fluid level in the central region and inguinal canal which is contiguous with the colon which has diverticular disease. This is most consistent with abscess formation. Joe Vincent MD Abdomen: Non-distended, Non-tender, Other (VAC in place) Extremities: SCD's on Wound Wound : Wound Location: Abdomen Dressing: VAC (bloody drainage in VAC canister) A/P Problem List: (1) Infection due to yeast (2) Diverticulosis of colon (3) Abdominal wall abscess (4) Leukocytosis Assessment and Plan 76-year-old female who developed a left lower abdominal wall abscess culture showing yeast VAC in place Advance diet to regular today nothing by mouth after midnight For vac change in the morning in the operating room to reevaluate wound Get home health care to be involved she will need a VAC on an outpatient basis Problem Qualifiers (1) Diverticulosis of colon: Qualified Code: K57.30 - Diverticulosis of large intestine without hemorrhage (2) Leukocytosis: Qualified Code: D72.829 - Leukocytosis, unspecified type Jamir Shankar MD Nov 27, 2016 13:08
[2016-11-27] MEDS: ONDANSETRON HCL 4 MG/2 ML VIAL IVP PRN ×2 (13:58→20:40)
[2016-11-27] MEDS ORDERED: PROMETHAZINE INJ 25 MG/ML VIAL IM ONE (20:45)
[2016-11-28 00:45] VITALS: BP 127/63; PULSE 95; RESP 17; TEMP 100.3; O2SAT 92
[2016-11-28] MEDS: PIPERACIL-TAZO 3.375 GM PREMIX 50 ML IV SCH ×4 (02:00→20:50)
[2016-11-28 04:11] VITALS: BP 143/76; PULSE 89; RESP 17; TEMP 99.2; O2SAT 94
[2016-11-28] MEDS: ONDANSETRON HCL 4 MG/2 ML VIAL IVP PRN ×2 (04:11→14:39)
[2016-11-28] MEDS: LACTATED RINGER'S 1000 ML IV SCH ×2 (06:30→09:15)
[2016-11-28] MEDS: SODIUM CHLORID 0.9% 500 ML IV SCH ×2 (06:30→23:10)
[2016-11-28] MEDS ORDERED: INSULIN HUMAN REGULAR 1,000 UNITS/10 ML VIAL SQ PRN (06:30)
[2016-11-28] MEDS ORDERED: METOPROLOL TARTRATE 25 MG TAB PO PRN (06:30)
[2016-11-28 08:12] VITALS: BP 129/74; PULSE 83; RESP 16; TEMP 97.7; O2SAT 93
[2016-11-28] MEDS: SODIUM CHLORIDE 0.9% FLUSH 5 ML FLUSH IVF SCH (09:00)
[2016-11-28] MEDS: ACETAMINOPHEN/HYDROcodone 325 MG/5 MG TAB PO PRN ×2 (09:39→14:40)
[2016-11-28] MEDS: LOSARTAN 50 MG TAB PO SCH (09:39)
[2016-11-28] MEDS: HEPARIN SODIUM - SQ 10,000 UNITS/ML VIAL SQ SCH (09:42)
[2016-11-28] MEDS: FLUCONAZOLE 400 MG PREMIX BAG 200 ML IV SCH (11:00)
[2016-11-28] MEDS ORDERED: PROPOFOL 200 MG/20 ML AMP IV ONE (12:00)
[2016-11-28] MEDS ORDERED: FLUCONAZOLE IV ONE (12:00)
[2016-11-28] MEDS ORDERED: ONDANSETRON HCL 4 MG/2 ML VIAL IV PUSH ONE (12:00)
[2016-11-28] MEDS ORDERED: NEOSTIGMINE 3 MG/3 ML SYR IV ONE (12:00)
[2016-11-28] MEDS ORDERED: SODIUM CHLORIDE IV ONE (12:00)
[2016-11-28] MEDS ORDERED: PHENYLEPH/NS 1000 MCG/10 ML SYR IV ONE (12:00)
--- NOTE | 2016-11-28 12:12 | HHI.PR ---
Subjective Subjective Remarks S/P wound vac change nauseous overnight, more dry heaves afraid to take abx, refused Zosyn x 2 doses spiked fever last night 100.3 no cp no sob minimal abd. pain granddaughter at bsd Review of Systems Constitutional Constitutional Remarks 12 point ROS completed, neg except as noted above GI/Abdomen GI/Abdominal Exam: Abdominal Pain (at mid lower quadrants, wound VAC on) Vitals/Results Intake & Output 11/27/16 11/27/16 11/28/16 15:00 23:00 07:00 Intake Total 1217 ml 480 ml 120 ml Output Total 150 ml Balance 1067 ml 480 ml 120 ml Intake Oral 720 ml 480 ml 120 ml IV Total 497 ml Drainage Total 150 ml # Voids 5 2 3 # Bowel Movements 1 0 2 Vital Signs Vital Signs Date Time Temp Pulse Resp B/P Pulse Ox O2 Delivery O2 Flow Rate FiO2 11/28/16 08:12 97.7 83 16 129/74 93 11/28/16 04:11 99.2 89 17 143/76 94 11/28/16 00:45 100.3 95 17 127/63 92 11/27/16 22:16 21 11/27/16 20:09 97.9 91 18 140/78 92 11/27/16 16:00 99.6 86 18 163/84 93 CBC/BMP: 11/27/16 0700 11/27/16 0700 Physical Exam General General Appearance: Well Developed, Well Nourished, No Acute Distress Eyes Eye Exam: Pupils Equal, Pupils Reactive, Sclera White, Extraocular Movement Intact Ears & Nose Ears & Nose Exam: Nasal Mucosa [place] Throat Throat Exam: Oral Mucosa [place] & Moist Neck Neck Exam: Neck Supple, Trachea Midline Pulmonary Resp Exam: Clear Bilaterally, Breath Sounds Equal Cardiology CV Exam: Regular Gastrointestinal/Abdomen GI Exam: Soft, Non-Tender, Bowel Sounds Present, Positive Bowel Movement, Non- Distended GI Remarks Wound vac lower abdomen Musculoskeletal MS Exam: Joints Intact Integumentary Skin Exam: Clear, Warm, Dry, Intact Extremeties Extremities Exam: No Edema, Pedal Pulses Palpable Neurologic Neuro Exam: Alert, Awake, Oriented, Speech Clear, Moving All Extremities, No Focal Deficits Psychiatric Psych Exam: Appropriate Responses VTE Prophylaxis VTE Prophylaxis Device: SCDs VTE Prophylaxis Meds: Heparin PUD Prophylasis PUD Prophylaxis: Protonix Assessment/Plan Problem List: (1) Diverticulosis of colon (2) Abdominal wall abscess (3) Dehydration (4) Leukocytosis (5) HTN (hypertension) (6) Acute renal injury Assessment/Plan 76-year-old female presented to the emergency room yesterday with lower abdominal pain ongoing for several weeks, associated with nausea vomiting diarrhea. Treated as outpatient with Cipro and Flagyl for possible diverticulitis. Presented to the emergency room for further evaluation and had CT showing possible pelvic abscess likely due to ruptured diverticulum. Status post I&D of abdominal wall abscess with wound VAC placement 11/24/2016 S/P wound vac change 11/28/2016 -Continue with empiric antibiotics, + suad lambica, continue to follow culture Continue postop care Pain management- [place] and morphine Regular diet per surgery recommendation -Bowel regimen Acute renal injury, secondary to dehydration from nausea vomiting-improving IVF Monitor BMP Hypertension, elevated -continue home meds SCDs for DVT prophylaxis, Add Heparin SQ Protonix for GI prophylaxis Duonebs PRN OOB IS Refused abx due to nausea, will give antiemetics before abx labs in am D/W RN D/W Dr. Shaw D/W pt. This patient was seen by myself and Dr. Shaw, this note is written on her behalf Problem Qualifiers (1) Diverticulosis of colon: Qualified Code: K57.30 - Diverticulosis of large intestine without hemorrhage (2) Leukocytosis: Qualified Code: D72.829 - Leukocytosis, unspecified type (3) HTN (hypertension): Qualified Code: I10 - Essential hypertension Tanika Cobos Nov 28, 2016 12:12
--- NOTE | 2016-11-28 12:14 | HHI.FF ---
Face to Face Verification Diagnosis: (1) Diverticulosis of colon (2) Abdominal wall abscess (3) Dehydration (4) Leukocytosis (5) HTN (hypertension) (6) Acute renal injury (7) Infection due to yeast Physical Therapy Order: Evaluate and Treat Home Health Nursing Order: Medical education Signs/symptoms of disease process Wound care and dressing changes Instructions: WOUND VAC MANAGEMENT I have seen patient Rosaura Callaway on 11/28/16. My clinical findings support the need for the requested home health care services because: Deconditioned w/ increased weakness Need for psychosocial assistance I certify that my clinical findings support that this patient is homebound because: Post-op weakness Need for psychosocial assistance Tanika Cobos Nov 28, 2016 12:14
[2016-11-28] MEDS ORDERED: DO NOT ADM ANY ANTICOAGULANT DRUGS XX PRN (12:45)
[2016-11-28] MEDS ORDERED: MIDAZOLAM HCL 2 MG/2 ML VIAL ONE (12:51)
[2016-11-28] MEDS ORDERED: SCOPOLAMINE 1.5 MG PATCH TD ONE (15:00)
[2016-11-28] MEDS: PANTOPRAZOLE SOD 40 MG DELAYED RELEASE TAB PO SCH (15:58)
[2016-11-28 16:10] VITALS: BP 123/73; PULSE 67; RESP 16; TEMP 95.2; O2SAT 99
[2016-11-28 20:00] VITALS: BP 143/69; PULSE 97; RESP 16; TEMP 98; O2SAT 94
[2016-11-28] MEDS: PROMETHAZINE INJ 25 MG/ML VIAL IM PRN (20:51)
[2016-11-29] VITALS (7 sets, daily range): BP systolic 117–154; BP diastolic 61–78; PULSE 86–91; RESP 16–22; TEMP 97.2–98.6; O2SAT 92–99
[2016-11-29] MEDS: SODIUM CHLORIDE 0.9% FLUSH 5 ML FLUSH IVF SCH ×3 (02:31→20:09)
[2016-11-29] MEDS: PIPERACIL-TAZO 3.375 GM PREMIX 50 ML IV SCH ×2 (02:31→09:18)
[2016-11-29] MEDS: LACTATED RINGER'S 1000 ML IV SCH (06:30)
[2016-11-29 07:30] LABS: HEMATOCRIT 35.3 % (35.0-46.0); MEAN CELL VOLUME 87.8 FL (80.0-100.0); MEAN CORPUSCULAR HEMOGLOBIN 28.6 PG (27.0-34.0); MEAN CORPUSCULAR HGB CONC 32.5 % (32.0-36.0); PLATELET COUNT 349 TH/MM3 (150-450); RED BLOOD COUNT 4.02 MIL/MM3 (4.00-5.30); RED CELL DISTRIBUTION WIDTH 15.2 % (11.6-17.2); REVIEW FLAG FINAL; WHITE BLOOD COUNT 12.4 TH/MM3 (4.0-11.0)
[2016-11-29 07:39] LABS: BICARBONATE 32.6 MEQ/L (21.0-32.0); POTASSIUM 3.5 MEQ/L (3.5-5.1)
--- NOTE | 2016-11-29 08:57 | MB ---
cc: JAYME SHANKAR JAVIER M.D. DATE OF CONSULTATION: 11/25/2016 REASON FOR CONSULTATION Left lower quadrant abdominal wall abscess. HISTORY OF PRESENT ILLNESS This is a 76-year-old female who is in pretty good health. She had a four or five day history of some abdominal pain. She was thought to have diverticulitis and was started on Cipro and Flagyl. This progressively got worse. She came to the emergency room and a CT scan showed an abdominal abscess in the skin in the left lower quadrant. Surgery was consulted for surgical evaluation. She was fairly stable and comfortable. REVIEW OF SYSTEMS No cardiac or respiratory difficulties. No problems. She had a colonoscopy by Dr. Gray a few years back and was told to have diverticulosis. No neurologic or psychiatric abnormalities. PAST MEDICAL HISTORY 1. Hypertension. 2. Rectal fistula. 3. Never had abdominal surgery before. ALLERGIES No known allergies. MEDICATIONS Apparently she was on some Cipro and Flagyl and she takes antihypertensives. PHYSICAL EXAMINATION GENERAL: On physical exam she is a pleasant 76-year-old lady who looks much younger than her stated age. NECK: Supple. CHEST: Clear. HEART: Regular rate. ABDOMEN: Thin. Soft. She has a fullness in the left lower quadrant where this abscess is located on the CT scan. slightly tender. No surgical scars. EXTREMITIES: No clubbing, cyanosis or edema. NEUROLOGIC: She is alert and oriented without difficulty. She is a little bit concerned with her medical condition. LABORATORY DATA White count 14, H&H 10 and 33. Chemistry was essentially normal with a slight increase in her creatinine. Coags are normal. IMAGING DATA Imaging studies show an abscess 11 x 11 cm in the left lower quadrant; not sure, may be contiguous with the colon. has diverticulosis ASSESSMENT Abdominal wall abscess. Left lower quadrant PLAN Operative intervention with opening and debriding and possibly packing. Will see if this connects to the colon. This was all explained to the patient and she appeared to understand. Jayme Shankar MD JDB/BREN /8:35 AM /8:47 AM MARLENY
--- NOTE | 2016-11-29 09:03 | MP ---
cc: JAYME SHANKAR M.D. DATE OF SURGERY: 11/28/2016 PREOPERATIVE DIAGNOSIS Abscess left lower quadrant with VAC. POSTOPERATIVE DIAGNOSIS Abscess left lower quadrant with VAC. PROCEDURE Placement of VAC device with sharp debridement of remaining necrotic subcutaneous tissue and fascia. ANESTHESIA General. SURGEON Dr. Shankar INDICATION This is a pleasant 76-year-old female who developed an abscess to the left lower quadrant. Cultures grew only yeast. She has a VAC in place. Plans were made for re-inspection of the wound with further debridement. DETAILS OF PROCEDURE The patient was taken to the operating room and placed in supine position. After anesthesia the old VAC is removed. She is prepped with Betadine. She has a good amount of granulation tissue; however, along the lateral border there is some more necrotic tissue which is sharply debrided with sharp knives and scissors. Electrocautery is used for hemostasis. We then irrigate copiously. There is no connection to the intra-abdominal cavity or the bowel as suspected by radiologic imaging. I do not see any drainage of bowel contents. After irrigating copiously we then cut one of the smaller sponges in half and place this in the wound and apply the VAC device. The patient tolerated the procedure well, had no immediate post-op complications. Jayme Shankar MD JDB/BREN /3:18 PM /8:58 AM
[2016-11-29] MEDS: LOSARTAN 50 MG TAB PO SCH (09:18)
[2016-11-29] MEDS: PROMETHAZINE INJ 25 MG/ML VIAL IM PRN (09:19)
[2016-11-29] MEDS: PANTOPRAZOLE SOD 40 MG DELAYED RELEASE TAB PO SCH (09:19)
[2016-11-29] MEDS: HEPARIN SODIUM - SQ 10,000 UNITS/ML VIAL SQ SCH ×2 (09:19→20:09)
[2016-11-29] MEDS ORDERED: CIPR500T2 PO (10:47)
[2016-11-29] MEDS ORDERED: DIFL200T PO ×2 (10:47→14:18)
[2016-11-29] MEDS ORDERED: guaiFENesin SOLUTION 200 MG/10 ML CUP PO PRN (11:15)
--- NOTE | 2016-11-29 11:30 | HHI.PR ---
Subjective Subjective Notes DAILY PROGRESS NOTE FOR SURGICAL ATTENDING, DR. JAMIR SHANKAR Resting in bed No issues overnight Objective Vitals/I&O Vital Signs Date Time Temp Pulse Resp B/P Pulse Ox O2 Delivery O2 Flow Rate FiO2 11/29/16 08:00 98.1 90 22 154/76 94 11/28/16 13:30 Nasal Cannula 2 11/27/16 22:16 21 Labs Laboratory Tests Test 11/29/16 06:40 White Blood Count 12.4 Red Blood Count 4.02 Hemoglobin 11.5 Hematocrit 35.3 Mean Corpuscular Volume 87.8 Mean Corpuscular Hemoglobin 28.6 Mean Corpuscular Hemoglobin 32.5 Concent Red Cell Distribution Width 15.2 Platelet Count 349 Mean Platelet Volume 10.5 Sodium Level 140 Potassium Level 3.5 Chloride Level 99 Carbon Dioxide Level 32.6 Anion Gap 8 Blood Urea Nitrogen 9 Creatinine 1.11 Estimat Glomerular Filtration 48 Rate Random Glucose 77 Calcium Level 8.6 Date/Time Procedure Status Source Growth 11/25/16 10:44 Gram Stain - Final Complete Fluid Other 11/25/16 10:44 Body Fluid Culture - Final Complete Diane Lambica 11/24/16 21:52 Aerobic Blood Culture - Final Complete Blood Peripheral NO GROWTH IN 5 DAYS 11/24/16 21:52 Anaerobic Blood Culture - Final Complete Blood Peripheral NO GROWTH IN 5 DAYS Radiology Last Impressions Abdomen/Pelvis CT 11/24/16 1840 Signed Impressions: Service Date/Time: November 19:03 - CONCLUSION: Multiple abnormalities as described above. Most significant is a 7 x 5.6 cm soft tissue mass left lower pelvic wall with air fluid level in the central region and inguinal canal which is contiguous with the colon which has diverticular disease. This is most consistent with abscess formation. Joe Vincent MD Cardiovascular: Regular Lungs: Clear Abdomen: Other (LLQ Wound Vac in place ) Extremities: No edema Narrative Exam VAC in place A/P Problem List: (1) Abdominal wall abscess (2) Infection due to yeast (3) Diverticulosis of colon (4) Leukocytosis Assessment and Plan 76 year old female POD1 Wound Vac change of LLQ abdominal wall abscess -Cultures shows yeast growing---PO Diflucan -Continue PO Cipro -Plan for Wound Vac changes [facility] -CM consult for HHC --Wound Vac form filled out and on chart -Okay to DC when HHC and Wound Vac arranged -Follow up in Dr. Shankar in 1 week DAILY PROGRESS NOTE FOR SURGICAL ATTENDING, DR. JAMIR SHANKAR He will need outpatient therapy with ciprofloxacin and Diflucan Attending Statement NOTE FOR SURGICAL ATTENDING, DR. JAMIR SHANKAR I agree with above assessment and plan. The exam, history, and the medical decision-making described in the above note were completed with the assistance of the mid-level provider. I reviewed and agree with the findings presented. I attest that I had a [id number] encounter with the patient on the same day, and personally performed and documented my assessment and findings in the medical record. The following services were provided during this hospital visit: Chart data review, vital sign assessments/reviewing monitor data Review of consultations notes if present. Medication orders/review and/or management Ordering and/or reviewing lab tests Ordering and/or interpreting/reviewing x-rays and/or diagnostic studies Care of the patient and discussion of the patient with the care team Documentation time To help prompt me to consider important information that might be impacting today's encounter and assessment, information from prior notes written by myself or my colleagues may have been "brought forward/copy and pasted" into today's note. Problem Qualifiers (1) Diverticulosis of colon: Qualified Code: K57.30 - Diverticulosis of large intestine without hemorrhage (2) Leukocytosis: Qualified Code: D72.825 - Bandemia Kaleigh Jones Nov 29, 2016 11:30 Jamir Shankar MD Nov 29, 2016 11:58
--- NOTE | 2016-11-29 11:33 | HHI.PR ---
Subjective Subjective Remarks Sitting up on side of bed Alert, conversational No acute pain except at abdominal wall infection site, lower mid abdomen BM loose times last 2 days Clear liquids, small amounts Wound VAC, draining clear pink fluid, or bloody drainage, small amount (Ericka Ortiz) Review of Systems Constitutional Constitutional Remarks 10 point ROS done. Positives noted diarrhea, otherwise negative or unremarkable ROS (Ericka Ortiz) GI/Abdomen GI/Abdominal Exam: Diarrhea, Abdominal Pain (at mid lower quadrants, wound VAC on) (Ericka Ortiz) Musculoskeletal MS: Weakness (generalized) (Ericka Ortiz) Integumentary Skin: Wounds (abdominal lower mid area with wound VAC secured) (Ericka Ortiz) Psychiatric Psychiatric: Normal Mood Psychiatric Remarks Hoping to go home very soon (Ericka Ortiz) Vitals/Results Intake & Output 11/28/16 11/28/16 11/29/16 15:00 23:00 07:00 Intake Total 980 ml 240 ml 240 ml Balance 980 ml 240 ml 240 ml Intake Oral 480 ml 240 ml 240 ml IV Total 100 ml Other 400 ml # Voids 3 2 2 # Bowel Movements 0 0 Vital Signs Vital Signs Date Time Temp Pulse Resp B/P Pulse Ox O2 Delivery O2 Flow Rate FiO2 11/29/16 08:00 98.1 90 22 154/76 94 11/29/16 00:00 98.2 87 16 149/73 99 11/28/16 20:00 98.0 97 16 143/69 94 11/28/16 16:10 95.2 67 16 123/73 99 11/28/16 13:30 98.4 60 14 136/76 100 Nasal Cannula 2 11/28/16 13:15 62 14 150/78 100 Nasal Cannula 2 11/28/16 13:00 70 14 150/76 100 Nasal Cannula 2 11/28/16 12:45 75 14 137/77 99 Nasal Cannula 2 11/28/16 12:43 98.3 70 14 137/76 100 Nasal Cannula 3 (Ericka Ortiz) CBC/BMP: 11/29/16 0640 11/29/16 0640 Lab Results Laboratory Tests Test 11/29/16 06:40 White Blood Count 12.4 TH/MM3 Red Blood Count 4.02 MIL/MM3 Hemoglobin 11.5 GM/DL Hematocrit 35.3 % Mean Corpuscular Volume 87.8 FL Mean Corpuscular Hemoglobin 28.6 PG Mean Corpuscular Hemoglobin 32.5 % Concent Red Cell Distribution Width 15.2 % Platelet Count 349 TH/MM3 Mean Platelet Volume 10.5 FL Sodium Level 140 MEQ/L Potassium Level 3.5 MEQ/L Chloride Level 99 MEQ/L Carbon Dioxide Level 32.6 MEQ/L Anion Gap 8 MEQ/L Blood Urea Nitrogen 9 MG/DL Creatinine 1.11 MG/DL Estimat Glomerular Filtration 48 ML/MIN Rate Random Glucose 77 MG/DL Calcium Level 8.6 MG/DL Imaging Remarks Last Impressions Abdomen/Pelvis CT 11/24/16 1840 Signed Impressions: Service Date/Time: , November 24, 2016 19:03 - CONCLUSION: Multiple abnormalities as described above. Most significant is a 7 x 5.6 cm soft tissue mass left lower pelvic wall with air fluid level in the central region and inguinal canal which is contiguous with the colon which has diverticular disease. This is most consistent with abscess formation. Joe Vincent MD Current Medications Active Medications Ciprofloxacin (Cipro) 500 mg Q12HR PO; Start 11/29/16 at 21:00 Fentanyl Citrate (fentaNYL INJ) 100 mcg STK-MED ONCE .ROUTE; Start 11/28/16 at 12:52; Stop 11/28/16 at 12:53; Status DC Fluconazole (Diflucan) 200 mg DAILY PO; Start 11/30/16 at 09:00 Fluconazole/ Sodium Chloride (Diflucan 400 Mg Premix Bag) 400 mg STK-MED ONCE IV ; Start 11/28/16 at 12:00; Stop 11/29/16 at 10:41; Status DC Heparin Sodium (Porcine) (Heparin Inj) 5,000 units Q12HR SQ Last administered on 11/29/16t 09:19; Admin Dose 5,000 UNITS; Start 11/29/16 at 09:00 Midazolam HCl (Versed Inj) 2 mg STK-MED ONCE .ROUTE; Start 11/28/16 at 12:51; Stop 11/28/16 at 12:52; Status DC Miscellaneous Information ALL NURSING DEPARTME... UNSCH PRN XX; Start 11/28/16 at 12:45; Stop 11/29/16 at 12:44 Neostigmine Methylsulfate (Prostigmin Inj) 3 mg STK-MED ONCE IV; Start 11/28/16 at 12:00; Stop 11/29/16 at 10:41; Status DC Ondansetron HCl (Zofran Inj) 4 mg STK-MED ONCE IV PUSH; Start 11/28/16 at 12:00 ; Stop 11/29/16 at 10:41; Status DC Pantoprazole Sodium (Protonix) 40 mg DAILY PO Last administered on 11/29/16t 09: 19; Admin Dose 40 MG; Start 11/28/16 at 14:30 Phenylephrine HCl (Neosynephrine/ NS 1000 Mcg/10ml Syr) 1,000 mcg STK-MED ONCE IV; Start 11/28/16 at 12:00; Stop 11/29/16 at 10:41; Status DC Propofol (Diprivan 200 Mg/20 ml Inj) 200 mg STK-MED ONCE IV; Start 11/28/16 at 12:00; Stop 11/29/16 at 10:40; Status DC Scopolamine (Transderm-Scop 1.5 Mg Patch.72 Hr) 1 patch ONCE ONCE TD Last administered on 11/28/16t 15:59; Admin Dose 1 PATCH; Start 11/28/16 at 15:00; Stop 11/28/16 at 15:01; Status DC (Ericka OrtizP) Physical Exam General General Appearance: Well Developed, Well Nourished, No Acute Distress (Ericka Ortiz MRomeo REMODELER) Eyes Eye Exam: Pupils Equal, Pupils Reactive, Sclera White, Extraocular Movement Intact (Ericka Ortiz MRomeo REMODELER) Ears & Nose Ears & Nose Exam: Nasal Mucosa [place] (Ericka Ortiz MRomeo REMODELER) Throat Throat Exam: Oral Mucosa [place] & Moist (Ericka Ortiz MRomeo REMODELER) Neck Neck Exam: Neck Supple, Trachea Midline (Ericka Ortiz MRomeo REMODELER) Pulmonary Resp Exam: Clear Bilaterally, Breath Sounds Equal (Ericka Ortiz M. REMODELER) Cardiology CV Exam: Regular (Ericka Ortiz M. REMODELER) Gastrointestinal/Abdomen GI Exam: Soft, Non-Tender, Bowel Sounds Present, Positive Bowel Movement, Non- Distended GI Remarks Wound VAC on lower abdomen Diarrhea 2 days (Angel,Ericka M. REMODELER) Musculoskeletal MS Exam: Joints Intact ([place],Ericka M. REMODELER) Integumentary Skin Exam: Clear, Warm, Dry, Intact Skin Remarks Abdominal wound VAC on, draining small amounts of bloody to light pink tinged serous discharge (Angel,Ericka M. REMODELER) Extremeties Extremities Exam: No Edema, Pedal Pulses Palpable (Angel,Ericka M. REMODELER) Neurologic Neuro Exam: Alert, Awake, Oriented, Speech Clear, Moving All Extremities, No Focal Deficits ([place],Ericka M. REMODELER) Psychiatric Psych Exam: Appropriate Responses (Angel,Ericka M. REMODELER) VTE Prophylaxis VTE Prophylaxis Device: SCDs VTE Prophylaxis Meds: Heparin (Angel,Ericka M. REMODELER) PUD Prophylasis PUD Prophylaxis: Protonix ([place],Ericka M. REMODELER) Assessment/Plan Problem List: (1) Diverticulosis of colon (2) Abdominal wall abscess (3) Dehydration (4) Leukocytosis (5) HTN (hypertension) (6) Acute renal injury Assessment/Plan 76-year-old female presented to the emergency room yesterday with lower abdominal pain ongoing for several weeks, associated with nausea vomiting diarrhea. Treated as outpatient with Cipro and Flagyl for possible diverticulitis. Presented to the emergency room for further evaluation and had CT showing possible pelvic abscess likely due to ruptured diverticulum. Status post I&D of abdominal wall abscess with wound VAC placement 11/24/2016 S/P wound vac change, wound care and wound VAC management -Continue with empiric antibiotics, + suad lambica, continue to follow culture Continue Pain management- [place] and morphine Regular diet per surgery recommendation -Bowel regimen, hold any stool softeners. We'll check for C. difficile today. Patient has had diarrhea 2 days. Diarrhea, times the last 2 days. We'll check for C. difficile Acute renal injury, secondary to dehydration from nausea vomiting-improving IVF Monitor BMP Hypertension, elevated -continue home meds Patient using O2 per day much [id number]. States it's more for comfort measure. O2 removed to monitor on room air. Instructed patient to call if she is short of breath so we can measure her O2 saturation. SCDs for DVT prophylaxis, Add Heparin SQ Protonix for GI prophylaxis Duonebs PRN OOB IS Refused abx due to nausea, will give antiemetics before abx. Eating small amounts appetite fair. We'll recheck BMP in the morning. Today's potassium 3.5. Still showing mild leukocytosis white count 12.4 Hemoglobin stable at 11.5 D/W Dr. Shaw D/W pt. This patient was seen by myself and Dr. Shaw, patient seen on her behalf ( Ericka Ortiz) Assessment/Plan Patient seen and examined n/v improved hungry, wants to eat cleared by surgery for discharge to home with HHC on po Cipro and Diflucan d/c home with wound vac patient anxious for discharge CXR neg ok to d/c home discussed with patient discussed with case management discussed with Ericka LORENZ (Norma Sahw MD) Problem Qualifiers (1) Diverticulosis of colon: Qualified Code: K57.30 - Diverticulosis of large intestine without hemorrhage (2) Leukocytosis: Qualified Code: D72.825 - Bandemia (3) HTN (hypertension): Qualified Code: I10 - Essential hypertension Ericka Ortiz Nov 29, 2016 11:32 Norma Shaw MD Nov 29, 2016 14:14
--- NOTE | 2016-11-29 13:23 | RADRPT ---
EXAM DATE/TIME: 11/29/2016 12:00 [facility] COMPARISON: No previous studies available for comparison. INDICATIONS : Cough MEDICAL HISTORY : Hypertension. SURGICAL HISTORY : None. ENCOUNTER: Initial ACUITY: 2 days PAIN SCORE: 0/10 LOCATION: chest FINDINGS: PA and lateral views of the chest demonstrate the lungs to be symmetrically aerated without evidence of mass, infiltrate or effusion. The cardiomediastinal contours are unremarkable. Osseous structure s are intact. CONCLUSION: No acute disease. Uli Saunders MD on November 29, 2016 at 13:22 Board Certified Radiologist. This report was verified electronically.
[2016-11-29] MEDS ORDERED: HYDR-3516 PO (14:18)
--- NOTE | 2016-11-29 19:33 | HHI.DS ---
Discharge Summary Admission Date Nov 24, 2016 at 20:37 Discharge Date: Nov 29, 2016 Admitting Diagnosis abdominal wall abscess (1) Diverticulosis of colon Diagnosis: Secondary (2) Abdominal wall abscess Diagnosis: Principal (3) Leukocytosis Diagnosis: Principal (4) Dehydration Diagnosis: Principal (5) Acute renal injury Diagnosis: Principal (6) HTN (hypertension) Diagnosis: Secondary Procedures wound vac, debridements X 2 Brief History This was [id number] female who was in good health, has never been admitted to this facility. History hypertension. Patient presented to the emergency room yesterday with lower abdominal pain ongoing for several weeks. She had had loose stools and diarrhea. She denied any fever, no chills. She had some nausea and vomiting, and poor appetite. She her primary care physician who was treating her empirically for diverticulitis with Cipro and Flagyl approximately a week ago. The last couple of days her symptoms worsen with increasing pain. She presented to the emergency room for evaluation. She denied prior abdominal surgeries. She had CT of the abdomen and pelvis that showed a possible pelvic abscess likely due to ruptured diverticulum. Patient denied prior history of diverticular disease. CBC/BMP: 11/29/16 0640 11/29/16 0640 Significant Findings Laboratory Tests Test 11/27/16 11/29/16 07:00 06:40 White Blood Count 13.4 TH/MM3 12.4 TH/MM3 (4.0-11.0) (4.0-11.0) Red Blood Count 3.63 MIL/MM3 (4.00-5.30) Hemoglobin 10.3 GM/DL 11.5 GM/DL (11.6-15.3) (11.6-15.3) Hematocrit 31.6 % (35.0-46.0) Potassium Level 3.4 MEQ/L (3.5-5.1) Estimat Glomerular Filtration 55 ML/MIN (>89) 48 ML/MIN (>89) Rate Calcium Level 8.3 MG/DL (8.5-10.1) Carbon Dioxide Level 32.6 MEQ/L (21.0-32.0) Creatinine 1.11 MG/DL (0.50-1.00) Imaging Last Impressions Chest X-Ray 11/29/16 0000 Signed Impressions: Service Date/Time: Tuesday, November 29, 2016 12:00 - CONCLUSION: No acute disease. Uli Saunders MD Abdomen/Pelvis CT 11/24/161839 Signed Impressions: Service Date/Time: November 19:03 - CONCLUSION: Multiple abnormalities as described above. Most significant is a 7 x 5.6 cm soft tissue mass left lower pelvic wall with air fluid level in the central region and inguinal canal which is contiguous with the colon which has diverticular disease. This is most consistent with abscess formation. Joe Vincent MD PE at Discharge General Appearance: Well Developed, Well Nourished, No Acute Distress Eye Exam: Pupils Equal, Pupils Reactive, Sclera White, Extraocular Movement Intact Ears & Nose Exam: Nasal Mucosa [place] Throat Exam: Oral Mucosa [place] & Moist Neck Exam: Neck Supple, Trachea Midline Resp Exam: Clear Bilaterally, Breath Sounds Equal CV Exam: Regular GI Exam: Soft, Non-Tender, Bowel Sounds Present, Positive Bowel Movement, Non- Distended GI Remarks Wound VAC on lower abdomen Diarrhea 2 days MS Exam: Joints Intact Skin Exam: Clear, Warm, Dry, Intact Skin Remarks Abdominal wound VAC on, draining small amounts of bloody to light pink tinged serous discharge Extremities Exam: No Edema, Pedal Pulses Palpable Neuro Exam: Alert, Awake, Oriented, Speech Clear, Moving All Extremities, No Focal Deficits Psych Exam: Appropriate Responses VTE Prophylaxis Device: SCDs VTE Prophylaxis Meds: Heparin PUD Prophylaxis: Protonix Hospital Course Last Impressions Abdomen/Pelvis CT 11/24/161839 Signed Impressions: Service Date/Time: November 19:03 - CONCLUSION: Multiple abnormalities as described above. Most significant is a 7 x 5.6 cm soft tissue mass left lower pelvic wall with air fluid level in the central region and inguinal canal which is contiguous with the colon which has diverticular disease. This is most consistent with abscess formation. Joe Vincent MD Was evaluated in the emergency room, Surgery personal lines advisor was notified and patient was transferred to the main hospital. Patient underwent I&D of abdominal abscess with wound VAC placement. Patient awakes to voice, she has minimal pain. Complaining of mild nausea initially postop. This is the initial diagnosis that was used during this hospital stay this patient's plan of care. (1) Diverticulosis of colon (2) Abdominal wall abscess (3) Dehydration (4) Leukocytosis (5) HTN (hypertension) (6) Acute renal injury S/P wound vac change, wound care and wound VAC management Initiated and continued with with empiric antibiotics, + suad lambica, continue to follow cultures done on admission Pain management-was given using [place] and morphine. Regular diet per surgery recommendation. Patient initially had some decreased appetite, but this improved throughout the hospital stay. She did have some bouts of nausea, controlled with medication -Bowel regimen, hold any stool softeners. Patient noted some diarrhea X 2 days , mild , monitor Acute renal injury, secondary to dehydration from nausea vomiting-improving IVF Monitor BMP without acute issues Hypertension, elevated -continue home meds Patient using O2 per day much [id number]. States it's more for comfort measure. O2 removed to monitor on room air. Instructed patient to call if she is short of breath so we can measure her O2 saturation. SCDs for DVT prophylaxis, Add Heparin SQ Protonix for GI prophylaxis Duonebs PRN OOB IS Refused abx due to nausea, will give antiemetics before abx. Eating small amounts appetite fair. We'll recheck BMP in the morning. Today's potassium 3.5. Still showing mild leukocytosis white count 12.4, trending in stable in the right direction Hemoglobin stable at 11.5 Labs and vital signs were monitored throughout hospital stay. Patient was able to sit up in bed and ambulating in room and be up in chair, Patient seen and examined per Dr. Shaw day of discharge n/v improved hungry, wants to eat cleared by surgery for discharge to home with C on po Cipro and Diflucan d/c home with wound vac patient anxious for discharge CXR neg ok to d/c home discussed with patient discussed with case management Pt Condition on Discharge: Stable Discharge Disposition: Disch w/ Home Health Serv Discharge Instructions DIET: Follow Instructions for: Heart Healthy Diet Activities you can perform: Regular-No Restrictions Ericka Ortiz Nov 29, 2016 19:33 Still showing mild leukocytosis white count 12.4 Hemoglobin stable at 11.5 D/W Dr. Shaw D/W pt. This patient was seen by myself and Dr. Shaw, patient seen on her behalf ( Ericka Ortiz) Assessment/Plan Patient seen and examined n/v improved hungry, wants to eat cleared by surgery for discharge to home with HHC on po Cipro and Diflucan d/c home with wound vac patient anxious for discharge CXR neg ok to d/c home discussed with patient discussed with case management discussed with Ericka LORENZ (Norma Shaw MD) Problem Qualifiers (1) Diverticulosis of colon: Pt Condition on Discharge: Stable Discharge Disposition: Disch w/ Home Health Serv Discharge Instructions DIET: Follow Instructions for: Heart Healthy Diet Activities you can perform: Regular-No Restrictions Ericka Ortiz Nov 29, 2016 19:33
[2016-11-29] MEDS: ONDANSETRON HCL 4 MG/2 ML VIAL IVP PRN (20:11)
[2016-11-29] MEDS ORDERED: CIPROFLOXACIN 500 MG TAB PO SCH (21:00)
[2016-11-30] MEDS ORDERED: FLUCONAZOLE 200 MG TAB PO SCH (09:00)
== END 2016-11-29 23:05 | disposition home health service (06) | DRG 580 ==
LOC: PHED 15:40 → PHEDA 20:37 → N06B 11-25 00:02
PROVIDERS: ADMIT Internal Medicine; ATTEND Internal Medicine
PROC: 0J980ZX Drainage of Abdomen Subcutaneous Tissue and Fascia, Open Approach, Diagnostic (ICD-10-PCS; 2016-11-25)
PROC: 0JD80ZZ Extraction of Abdomen Subcutaneous Tissue and Fascia, Open Approach (ICD-10-PCS; principal; 2016-11-25 10:12)
PROC: 0JD80ZZ Extraction of Abdomen Subcutaneous Tissue and Fascia, Open Approach (ICD-10-PCS; 2016-11-28)
DX: L02.211 Cutaneous abscess of abdominal wall (principal); N17.9 Acute kidney failure, unspecified; K57.30 Diverticulosis of large intestine without perforation or abscess without bleeding; E86.0 Dehydration; B37.9 Candidiasis, unspecified; I10 Essential (primary) hypertension; K59.00 Constipation, unspecified; R11.2 Nausea with vomiting, unspecified; R06.2 Wheezing
CPT/HCPCS: 71020; 74177; 80048; 80053; 85025; 85027; 85610; 85730; 87040; 87070; 87077; 87205; 88304; 88305; 93005; 94150; 96361; 96374; 96375; J1450; J1644; J2250; J2270; J2370; J2405; J2543; J2550; J2710; J3010; J3370; J7030; J7050; Q9967

== ENCOUNTER 2018-07-20 15:39 | Inpatient (IN) ==
[2018-07-20] MEDS: Potassium Chloride Inj 10 MEQ in Dextrose 5%/Lactated Ringer's 1,000 ML IV.CONT SCH (18:09)
--- NOTE | 2018-07-20 18:51 | MH ---
cc: Dexter Gray MD, John T MD DATE OF ADMISSION: 07/20/2018 CHIEF COMPLAINT: Diverticulitis with abscess and impending colocutaneous fistula. HISTORY OF PRESENT ILLNESS: This patient is well known to me. She was referred to me by Dr. Jamir Shankar last year for a healed left lower quadrant wound where he drained it of pus, but it was an apparent abscess in the abdominal wall from a bout of diverticulitis. After he did that, she totally healed and CT scan showed that there was no active diverticulitis and I followed her along for over a year without any recurrence of diverticulitis or the abscess in the left lower quadrant. Because of her age, we elected to simply treat her conservatively. About 3 or 4 weeks ago, the patient developed another bout of diverticulitis and was treated with antibiotics. At that time, she had about a 1.5 cm abscess, right around the sigmoid colon; however, she had no extensive colocutaneous fistula as she had before. She also had very little in the way of pain and on exam in the office a couple of times since then, she felt well. About a week ago, I saw her again and she was having more in the way of abdominal pain, so we restarted her on Cipro. She came into my office today saying that for the last week since I started this, she has been weak and unable to eat and nauseated. She has felt worse and prior to coming in, I had her get a CT scan of the abdomen and pelvis yesterday showing that the abscess had increased in size up to 4 cm and it appeared as if it was attached to the abdominal wall emanating from 1 diverticula and it appeared as if it was going to perforate the abdominal wall at the site of last year's event. For this reason, I recommended that she go to the hospital for incision and drainage of this abscess at her abdominal wall region and start her on IV antibiotics. PAST MEDICAL HISTORY: Significant for this previous abdominal wall abscess in 11/2016 as mentioned. She does have a history of hypertension. Previous colonoscopies were negative. FAMILY HISTORY, SOCIAL HISTORY AND REVIEW OF SYSTEMS: Otherwise negative. PHYSICAL EXAMINATION: GENERAL: Well-developed, thin female in no acute distress at this time. SKIN: Warm and dry. HEENT: Extraocular muscles intact. NECK: Supple. CHEST: Clear. HEART: S1, S2 is heard. No murmurs or gallops. ABDOMEN: Soft. She is mildly tender in the left lower quadrant. She has this area of the previous abscess in the left lower quadrant that is tender on palpation and I can palpate fluid present. There is no redness or cellulitis present. RECTAL: Exam was not done today. EXTREMITIES: Range of motion within normal limits. NEUROLOGIC: Grossly normal. IMPRESSION: Diverticulitis with an enlarging abscess of about 4 cm in the perisigmoid region against the abdominal wall with an impending colocutaneous fistula. PLAN: I am going to bring her in the hospital, give her intravenous antibiotics, and get her on the operating room schedule and drain this left lower quadrant and presumably decompress this diverticular abscess that she has pending. Once this is done and drained for a couple of weeks and she is comfortable and gets her strength back, we will plan on elective sigmoid resection. At that time, I will have Dr. Shankar see her because she has a porcelain gallbladder and I have discussed this with him previously and he says that should be removed at the time of surgery. MD DAVID Perez/gage , 06:27 PM , 06:34 PM
--- NOTE | 2018-07-20 20:55 | XR ---
EXAM DATE: 07/20/2018 12:00 AM EDT AGE/SEX: 78 years / Female INDICATIONS: Evaluate for pneumonia, pneumothorax, or communicable disease. Pre-op surgery for absce ss drainage. CLINICAL DATA: This is the patient's initial encounter. Patient reports that signs and symptoms have been present for 1 day and indicates a pain score of 0/10. MEDICAL/SURGICAL HISTORY: Hypertension. None. COMPARISON: [facility], XR CHEST PA AND LAT, 12/08/2016. . FINDINGS: Emphysematous changes are again noted bilaterally. There is no acute infiltrate or pulmonary vascular congestion. The heart is normal. CONCLUSION: 1. Emphysematous changes noted bilaterally. 2. No acute infiltrate or pulmonary vascular congestion. Electronically signed by: Lake Benedict MD 07/20/2018 8:53 PM EDT
[2018-07-20 21:50] LABS: Baso # (Auto) 0.1 th/mm3 (0.0-0.2); Baso % (Auto) 0.9 % (0.0-2.0); Eos # (Auto) 0.1 th/mm3 (0.0-0.4); Eos % (Auto) 1.1 % (0.0-4.0); Hematocrit 36.2 % (35.0-46.0); Hemoglobin 11.9 gm/dL (11.6-15.3); Lymph # (Auto) 1.3 th/mm3 (1.0-4.8); Lymph % (Auto) 13.7 % (9.0-44.0); Mean Corpuscular Hemoglobin 30.6 pg (27.0-34.0); Mean Corpuscular Volume 92.9 fL (80.0-100.0); Mean Platelet Volume 10.4 fL (7.0-11.0); Mono # (Auto) 0.8 th/mm3 (0.0-0.9); Neut # (Auto) 7.1 th/mm3 (1.8-7.7); Neut % (Auto) 76.3 % (16.0-70.0); Platelet Count 252 th/mm3 (150-450); Red Cell Distribution Width 14.2 % (11.6-17.2); White Blood Count 9.4 th/mm3 (4.0-11.0)
[2018-07-20 22:15] LABS: Calcium 8.5 mg/dL (8.5-10.1); Carbon Dioxide 27.9 meq/L (21.0-32.0); Potassium 4.2 meq/L (3.5-5.1)
[2018-07-21] MEDS ORDERED: Metoprolol Tartrate 25 MG Tablet PO ONE (01:33)
[2018-07-21] MEDS ORDERED: Chlorhexidine Gluconate 2% 1 Pack (2 Cloths) TOPICAL ONE (01:33)
[2018-07-21] MEDS ORDERED: Sodium Chlor 0.9% Inj 500 ML IV.SIG SCH (02:00)
[2018-07-21 03:06] LABS: Bilirubin,Urine Negative (Negative); Clarity,Urine Clear (Clear); Color,Urine Straw (Yellw/Straw); Glucose,Urine (UA) Negative (Negative); Leukocyte Esterase,Urine Small (Negative); Nitrite,Urine Negative (Negative); Specific Gravity,Urine 1.012 (1.002-1.035); Squamous Epithelial Cell,Urine 1 /hpf (0-5)
[2018-07-21] MEDS: Potassium Chloride Inj 10 MEQ in Dextrose 5%/Lactated Ringer's 1,000 ML IV.CONT SCH (07:47)
[2018-07-21] MEDS ORDERED: Sod Chloride 0.9% Inj 1,000 ML IV.SIG SCH (07:55)
--- NOTE | 2018-07-21 08:17 | P.PNCS ---
Subjective Interval history: Pt remains with nausea. Labs done late last night not called to me. Creatinine was greater than 5 and BUN was in the 40s. Pt is non oliguric.D/W pt this AM. Denies pain Objective Result Diagrams: 07/20/18 21:27 07/20/18 21:27 Objective Remarks: Abd: soft,non tender even LLQ Assessment and Plan - Plan Non Oliguric renal failure- secondary to poor oral intake and IV contrast dye on 07/19/18. No renal obstruction on that CT scan. 4 cm pericolonic diverticular abscess with impending colocutaneous fistula LLQ- for drainage this AM.
[2018-07-21] MEDS: Dextrose 5%/NaCl 0.9% Inj 1,000 ML IV.CONT SCH ×4 (09:42→23:52)
[2018-07-21] MEDS ORDERED: Sugammadex Inj 200 MG/2 ML Vial IV.PUSH ONE (10:30)
[2018-07-21] MEDS ORDERED: Lidocaine PF 1% Inj 5 ML Syringe OTHER ONE (10:46)
[2018-07-21] MEDS ORDERED: Phenylephrine/NS 1000 MCG/10ML Syringe IV.PUSH ONE (10:46)
[2018-07-21] MEDS ORDERED: Potassium Chlor 20 mEq Premix 20 MEQ/100 ML PIGGYBACK IV.SIG PRN (11:19)
[2018-07-21] MEDS ORDERED: *morphine SULFATE 4 MG/ML PERIprocedure ONLY ONE (11:54)
[2018-07-21 12:06] LABS: Baso # (Auto) 0.1 th/mm3 (0.0-0.2); Baso % (Auto) 0.6 % (0.0-2.0); Eos # (Auto) 0.1 th/mm3 (0.0-0.4); Hematocrit 35.4 % (35.0-46.0); Hemoglobin 11.5 gm/dL (11.6-15.3); Lymph # (Auto) 0.9 th/mm3 (1.0-4.8); Lymph % (Auto) 9.4 % (9.0-44.0); Mean Corpuscular HGB Conc 32.6 % (32.0-36.0); Mean Corpuscular Hemoglobin 30.9 pg (27.0-34.0); Mean Corpuscular Volume 94.9 fL (80.0-100.0); Mean Platelet Volume 10.4 fL (7.0-11.0); Mono # (Auto) 0.7 th/mm3 (0.0-0.9); Mono % (Auto) 7.1 % (0.0-8.0); Neut # (Auto) 7.7 th/mm3 (1.8-7.7); Neut % (Auto) 81.9 % (16.0-70.0); Platelet Count 213 th/mm3 (150-450); Red Blood Count 3.73 mil/mm3 (4.00-5.30); Red Cell Distribution Width 14.4 % (11.6-17.2); White Blood Count 9.4 th/mm3 (4.0-11.0)
[2018-07-21 12:47] LABS: Calcium 7.7 mg/dL (8.5-10.1); Carbon Dioxide 24.1 meq/L (21.0-32.0); Potassium 4.3 meq/L (3.5-5.1)
--- NOTE | 2018-07-21 13:23 | MP ---
cc: Dexter Gray MD DATE OF OPERATION: PREOPERATIVE DIAGNOSIS: Impending colocutaneous fistula with subcutaneous abscess. POSTOPERATIVE DIAGNOSIS: Impending colocutaneous fistula with subcutaneous abscess. PROCEDURE PERFORMED: Incision and drainage of subcutaneous abdominal wall abscess. ANESTHESIA: General endotracheal. SURGEON: Dexter Gray MD ESTIMATED BLOOD LOSS: Minimal. OPERATIVE FINDINGS: This patient had a bout of diverticulitis in November 2016. At that time, she developed an abdominal wall abscess in the left lower quadrant and it was drained by Dr. Jamir Shankar. It appeared to be pus and not feculent colocutaneous fistula and was treated with a wound VAC and closed on its own. She was then referred to me and she totally healed this up and had no more bouts of diverticulitis for about a year and a half. I saw her intermittently, and we elected not to do any surgery since she was somewhat elderly. About a month ago, she returned to my office with a bout of diverticulitis, seen by my partner, Dr. Marshall, and was treated with antibiotics and a CT scan showed a 1.5 cm abscess next to her sigmoid, but not extravasating to the abdominal wall as previously. About a week ago, she developed more in the way of abdominal pain. I started her back on Cipro; however, her pain was minimal on exam in the office. She came to my office yesterday complaining of nausea and inability to eat much. She said that she did have a little bit more pain in the left lower quadrant, but it was still fairly minimal. Because of this, she had a CT scan a day prior to coming to me and it showed that the abscess had increased 1.5 to 4 cm and it was up against the abdominal wall with a subcutaneous abscess with impending colocutaneous fistula. For this reason, she was brought into the hospital and scheduled for incision and drainage. Of note, her labs came back last night showing her creatinine was 5, probably due to prerenal azotemia and the IV contrast that she had with the CT scan. This was nonoliguric. She was having nausea, so I discussed using general anesthesia for this procedure. At surgery, a small 2 cm incision was made in the left lower quadrant and immediate white purulent, thick pus was encountered and it was cultured and sent for Gram stain and sensitivity. The wound was opened in the subcutaneous down to just above the iliac crest, and a small opening was found, and the area was aspirated of this pus. No stool drained from this area and the wound was treated with electrocautery for hemostasis and a bag was placed on the wound. OPERATIVE TECHNIQUE: The patient was placed on the table in the supine position after adequate general endotracheal anesthesia. The abdomen was prepped and draped in the usual manner. A transverse 2 cm incision was made in the left lower quadrant at the site of the previous abscess and at the point where I could palpate some fullness and fluid. Once this was done, thick white pus came from the wound and it was cultured and the wound was aspirated. The wound was opened for a distance of 2 cm down to just above the iliac crest, where there was a small 0.5 cm hole obviously leading to the abdomen and the sigmoid colon, which was stuck next to it. No stool drained from this area and hemostasis was obtained with electrocautery and then a 57 mm appliance was placed over the wound. The surgery was terminated. The patient tolerated the procedure well and left the operating room in good condition. MD DAVID Perez/jen , 12:18 PM , 12:28 PM
[2018-07-21] MEDS ORDERED: fentaNYL Citrate Inj 100 MCG/2 ML Ampul ONE (14:39)
[2018-07-21 20:09] LABS: Calcium 7.7 mg/dL (8.5-10.1); Carbon Dioxide 24.3 meq/L (21.0-32.0); Potassium 4.1 meq/L (3.5-5.1)
--- NOTE | 2018-07-21 20:13 | ECG ---
Date Performed: 07/20/2018 Time Performed: 20:15:50 PTAGE: 78 years EKG: Sinus rhythm ABNORMAL ECG PREVIOUS TRACING : 11/25/2016 10.06 Since the previous tracing, no significant change noted DOCTOR: Brianne Cat Interpretating Date/Time 07/21/2018 20:12:52
[2018-07-22] MEDS: Dextrose 5%/NaCl 0.9% Inj 1,000 ML IV.CONT SCH ×3 (05:34→17:25)
--- NOTE | 2018-07-22 07:02 | P.PNCS ---
Subjective Colorectal Surgery Post Op Day #: 1 Interval history: Still with Nausea and dry heaves. Creatinine slowly decreasing. Await AM labs. Denies pain Objective Result Diagrams: 07/21/18 11:52 07/21/18 19:06 Objective Remarks: Abd: soft,non tender. Wound with minimal drainage Assessment and Plan - Plan Non Oliguric renal failure- secondary to poor oral intake and IV contrast dye on 07/19/18. No renal obstruction on that CT scan. Nausea continues No pain. D/C Flagyl
[2018-07-22 11:12] LABS: Baso % (Auto) 0.5 % (0.0-2.0); Eos # (Auto) 0.1 th/mm3 (0.0-0.4); Eos % (Auto) 1.4 % (0.0-4.0); Hematocrit 33.6 % (35.0-46.0); Hemoglobin 11.1 gm/dL (11.6-15.3); Lymph # (Auto) 0.9 th/mm3 (1.0-4.8); Lymph % (Auto) 11.6 % (9.0-44.0); Mean Corpuscular HGB Conc 33.2 % (32.0-36.0); Mean Corpuscular Hemoglobin 31.2 pg (27.0-34.0); Mean Corpuscular Volume 94.1 fL (80.0-100.0); Mean Platelet Volume 10.7 fL (7.0-11.0); Mono # (Auto) 0.5 th/mm3 (0.0-0.9); Neut # (Auto) 6.1 th/mm3 (1.8-7.7); Neut % (Auto) 80.5 % (16.0-70.0); Platelet Count 208 th/mm3 (150-450); Red Blood Count 3.57 mil/mm3 (4.00-5.30); Red Cell Distribution Width 14.7 % (11.6-17.2); White Blood Count 7.6 th/mm3 (4.0-11.0)
[2018-07-22 11:29] LABS: Carbon Dioxide 22.7 meq/L (21.0-32.0); Potassium 3.8 meq/L (3.5-5.1)
[2018-07-22] MEDS: Dextrose 5%/NaCl 0.45% Inj 1,000 ML IV.CONT SCH ×2 (17:15→23:46)
[2018-07-23 04:36] LABS: Baso # (Auto) 0.1 th/mm3 (0.0-0.2); Baso % (Auto) 0.6 % (0.0-2.0); Eos # (Auto) 0.2 th/mm3 (0.0-0.4); Hematocrit 30.3 % (35.0-46.0); Hemoglobin 10.1 gm/dL (11.6-15.3); Lymph # (Auto) 1.1 th/mm3 (1.0-4.8); Lymph % (Auto) 12.1 % (9.0-44.0); Mean Corpuscular HGB Conc 33.2 % (32.0-36.0); Mean Corpuscular Hemoglobin 31.1 pg (27.0-34.0); Mean Corpuscular Volume 93.6 fL (80.0-100.0); Mean Platelet Volume 10.2 fL (7.0-11.0); Mono # (Auto) 0.7 th/mm3 (0.0-0.9); Mono % (Auto) 8.2 % (0.0-8.0); Neut # (Auto) 6.8 th/mm3 (1.8-7.7); Neut % (Auto) 77.1 % (16.0-70.0); Platelet Count 166 th/mm3 (150-450); Red Blood Count 3.23 mil/mm3 (4.00-5.30); Red Cell Distribution Width 14.2 % (11.6-17.2); White Blood Count 8.9 th/mm3 (4.0-11.0)
[2018-07-23 04:58] LABS: Calcium 7.4 mg/dL (8.5-10.1); Carbon Dioxide 23.2 meq/L (21.0-32.0); Potassium 3.7 meq/L (3.5-5.1)
[2018-07-23] MEDS: Dextrose 5%/NaCl 0.45% Inj 1,000 ML IV.CONT SCH ×3 (07:25→20:55)
--- NOTE | 2018-07-23 09:52 | P.PNCS ---
Subjective Colorectal Surgery Post Op Day #: 2 Interval history: Pt nausea improved somewhat. Creatinine trending down. Will consult Nephrology for input. Needs to be OOB. Becoming deconditioned. Needs nutrition. Objective Result Diagrams: 07/23/18 04:20 07/23/18 04:20 Objective Remarks: Abd: soft,non tender. Wound with small drainage. Await wound care. May be able to just pack TID or QID if drainage remains scant after diet started. Assessment and Plan - Plan Non Oliguric renal failure- secondary to poor oral intake and IV contrast dye on 07/19/18 and previously. No renal obstruction on that CT scan. Nausea continues,but less No pain. D/C Flagyl Renal consult PT consult Renal diet Remains off Losartan until seen by Renal.
--- NOTE | 2018-07-23 14:35 | P.PNWCN ---
Wound Care Nurse Consult Description: Wound consult ordered by for wound management. Communicated with: Dexter PATEL, Recommendation: 1. Cleanse abdominal surgical wound with normal saline pat dry. 2. Apply thick even layer of Calazime cream to periwound. 3. Gently pack wound with 1/3 sheet of Maxorb AG single strip leaving tail exposed. Cover with dry gauze secure with gentle foam border dressing. 4. Change dressing daily or as needed for exudate management.Sign and date all dressings. 5. Please feel free to contact wound care team if treatment fails or wound worsens. Additional information: Patient was seen today by assembly instructions writer for wound management of LLQ post I&D.Patient alert sitting up in chair in no acute distress .Elect Equip Maint Eng assisted patient into bed .Ostomy appliance visualized by assembly instructions writer with exudate noted under wafer.Appliance removed with out difficulty.intact bullas noted to periwound with mild maceration noted @ 9 and 3 o'clock.Wound cleansed with normals jackson pat dry wound measures 0.3cm x 3.3cm x~2.0cm wound base unable to visualize do to depth.Wound cleansed with normal saline pat dry. Calazime applied to periwound.Maxorb ll cut in 1/3 sheet gently packed into wound base leaving tail exposed.Covered with dry gauze secured with gentle border foam dressing.Dressing signed and dated.patient tolerated wound care well. Wound/Pressure Injury - Wound Left Abdomen Wound Assessment: Ongoing Wound Type: Traumatic Wound Is This a Chronic Wound: No Requested from Provider a Wound Care Consult: No (lAlie PATEL,[facility] seen 07/23) Length (cm): 0.3 Width (cm): 3.3 Depth (cm): 2.0 Wound Bed Appearance: Red, Yellow Surrounding Tissue Appearance: Blanched/Dull Surrounding Tissue Temperature: Cool Drainage Description: Green Drainage Amount: Minimal Drainage Odor: Slight Odor Dressing Status: Changed Cleansing Solution: Saline Topical: calazime Wound Packing Type: Alginate Primary Dressing: Gauze Pad Cover Dressing: Adhesive Dressing Wound Dressing Change Date: 07/23/18
--- NOTE | 2018-07-23 15:48 | P.CONNP ---
<KonraddiannMely aguilar - Last Filed: 07/23/18 15:30> History of Present Illness Service: Nephrology Consult date: 07/23/18 Requesting Physician: Dexter Gray Reason for Consult: Acute kidney injury Primary Care Provider: UNKNOWN History of Present Illness: Patient is a 78 year old female with past medical history of hypertension and previous abdominal wall abscess. About 3 or 4 weeks ago, the patient developed another bout of diverticulitis and was treated with antibiotics. About 1 week ago patient started to have increased abdominal pain, nausea, weakness and unable to eat. CT scan with contrast was done showing that the abscess up to 4 cm and it appeared as if it was attached to the abdominal wall. Nephrology is consulted for acute kidney with creatinine of 4.27, potassium level of 4.7, and HCO3 of 23.2. On admission creatinine was 5.98 so has been improving. No previous history of kidney disease and creatinine noted to be 0.99 on 11/2016. Has IVF infusing and indwelling Odonnell catheter. Reports shortness of breath on exertion only, continues to have dry heaves, nausea, and poor appetite. PMFSH - History History Provided By: Patient - Tobacco History Second Hand Smoke Exposure: No Smoking Status: Never smoker - Alcohol History How Often Do You Have a Drink Containing Alcohol: Never - Substance Use History Substance History: No History of Abuse Medications and Allergies Allergies Allergy/AdvReac Type Severity Reaction Status Date / Time metronidazole AdvReac Severe Nausea/Vomi Verified 07/20/18 19:09 ting Home Medications Medication Instructions Recorded Confirmed Type losartan 100 mg PO DAILY 07/20/18 07/20/18 History Active Medications: Active Medications Hydrocodone Bitart/Acetaminophen (Lind 5/325) 1 tab PO Q4H PRN PRN Reason: PAIN SCALE 1 TO 5 Hydrocodone Bitart/Acetaminophen (Lind 10/325) 1 tab PO Q4H PRN PRN Reason: PAIN SCALE 6 TO 10 Ceftriaxone Sodium 1,000 mg/ (Sodium Chloride) 100 mls @ 200 mls/hr IV.SIG Q12H [facility] Last Infusion: 07/23/18 08:25 Dose: Infused Sodium Chloride (Ns Inj) 500 mls @ 30 mls/hr IV.SIG .Q10H [facility] Last Admin: 07/21/18 06:25 Dose: Not Given Sodium Chloride (Ns Inj) 1,000 mls @ 0 mls/hr IV.SIG BOLUS [facility] Last Infusion: 07/21/18 09:27 Dose: Infused Potassium Chloride (Kcl 20 Meq Premix Inj) 20 meq in 100 mls @ 50 mls/hr IV.SIG UNSCH PRN PRN Reason: for K+ level 3.0-3.5 Dextrose/Sodium Chloride (D5w/1/2 Ns Inj) 1,000 mls @ 150 mls/hr IV.CONT .Q6H40M [facility] Last Admin: 07/23/18 13:32 Dose: 150 mls/hr Ondansetron HCl (Zofran Inj) 4 mg IV.PUSH Q6H PRN PRN Reason: NAUSEA/VOMITING Last Admin: 07/23/18 11:28 Dose: 4 mg Sodium Chloride (Ns Flush) 2 ml IV.FLUSH BID [facility] Last Admin: 07/23/18 09:36 Dose: Not Given Sodium Chloride (Ns Flush) 2 ml IV.FLUSH PRN PRN PRN Reason: FLUSH AFTER USING IV ACCESS Last Admin: 07/21/18 14:51 Dose: 2 ml Exam Vital signs: Vital Signs 07/22/18 15:54 07/22/18 20:00 07/23/18 00:00 Temperature 98.4 F 99.2 F 98.8 F Pulse Rate 80 77 72 Respiratory Rate 20 16 16 Blood Pressure 177/75 H 168/77 H 158/63 H Pulse Oximetry 94 L 93 L 94 L 07/23/18 08:00 07/23/18 12:00 Temperature 97.9 F 97.6 F Pulse Rate 84 70 Respiratory Rate 18 17 Blood Pressure 191/81 H 177/86 H Pulse Oximetry 94 L 96 Intake & Output 07/22/18 07/23/18 07/23/18 18:59 06:59 18:59 Intake Total 2200 / 2200 1900 / 1900 1100 / 1100 Output Total 1310 / 1310 910 / 910 125 / 125 Balance 890 / 890 990 / 990 975 / 975 Weight 68.5 kg Intake: IV 2200 / 2200 1900 / 1900 1100 / 1100 D5W/1/2 NS Inj 1,000 ML @ 150 100 / 100 1900 / 1900 1000 / 1000 mls/hr IV.CONT .Q6H40M [facility] Rx#: [id number] D5W/Normal Saline Inj 1,000 ML 1900 / 1900 @ 175 mls/hr IV.CONT .Q5H43M [facility] Rx#:[id number] Rocephin Inj 1,000 MG In NS Inj 200 / 200 100 / 100 100 ML @ 200 mls/hr IV.SIG Q12H [facility] Rx#:[id number] Output: Urine Amount (Catheter) 1250 / 1250 900 / 900 125 / 125 Indwelling Urethral Catheter 1250 / 1250 900 / 900 125 / 125 Wound Drainage 60 / 60 10 10 Left Lower Abdomen 60 / 60 10 Other: Date of Last Bowel Movement 07/22/18 07/22/18 Narrative: GENERAL: Alert and oriented. SKIN: Warm and dry. Dressing in right lower extremity NECK: Supple, trachea midline. No JVD. CARDIOVASCULAR: Regular rate and rhythm without murmurs, gallops, or rubs. RESPIRATORY: Breath sounds equal bilaterally. No accessory muscle use. GASTROINTESTINAL: Abdomen soft, non-tender. MUSCULOSKELETAL: No cyanosis, or edema. BACK: Nontender without obvious deformity. No CVA tenderness. Results - Lab Results 07/23/18 04:20 07/23/18 04:20 Most recent lab results Calcium 7.4 mg/dL (8.5-10.1) L* 07/23/18 04:20 Assessment and Plan - Assessment (1) Acute kidney injury Code(s): N17.9 - Acute kidney failure, unspecified Status: Acute (2) Hypertension Code(s): I10 - Essential (primary) hypertension Status: Acute (3) Abscess Code(s): L02.91 - Cutaneous abscess, unspecified Status: Acute - Plan Acute kidney with creatinine of 4.27, potassium level of 4.7, and HCO3 of 23.2. On admission creatinine was 5.98 so has been improving. No previous history of kidney disease and creatinine noted to be 0.99 on 11/2016. Agree that acute kidney injury most likely ATN related contrast induced nephropathy along with dehydration. Continue IVF administration as patient continues to have nausea and poor appetite Keep indwelling Odonnell catheter to maintain strict I+O. Avoid nephrotoxins, including NSAIDS, ARBs, IV contrast, and aminoglycosides Hypertension will order nifedipine. Serology and SPEP Urine for osmolarity, sodium and creatinine Will follow urinary output and bmp. <Layne Leo Q - Last Filed: 07/25/18 19:28> History of Present Illness Primary Care Provider: UNKNOWN Medications and Allergies Active Medications: Active Medications Hydrocodone Bitart/Acetaminophen (Lind 5/325) 1 tab PO Q4H PRN PRN Reason: PAIN SCALE 1 TO 5 Hydrocodone Bitart/Acetaminophen (Lind 10/325) 1 tab PO Q4H PRN PRN Reason: PAIN SCALE 6 TO 10 Calcium Carbonate (Oscal) 500 mg PO BID [facility] Ceftriaxone Sodium 1,000 mg/ (Sodium Chloride) 100 mls @ 200 mls/hr IV.SIG Q12H [facility] Last Infusion: 07/25/18 17:50 Dose: Infused Sodium Chloride (Ns Inj) 500 mls @ 30 mls/hr IV.SIG .Q10H [facility] Last Admin: 07/21/18 06:25 Dose: Not Given Sodium Chloride (Ns Inj) 1,000 mls @ 0 mls/hr IV.SIG BOLUS [facility] Last Infusion: 07/21/18 09:27 Dose: Infused Potassium Chloride (Kcl 20 Meq Premix Inj) 20 meq in 100 mls @ 50 mls/hr IV.SIG UNSCH PRN PRN Reason: for K+ level 3.0-3.5 Last Infusion: 07/25/18 12:56 Dose: Infused Potassium Chloride 20 meq/ (Dextrose/Sodium Chloride) 1,010 mls @ 75 mls/hr IV.CONT .[id number] [facility] Last Admin: 07/25/18 16:28 Dose: 75 mls/hr Nifedipine (Procardia Xl) 60 mg PO DAILY [facility] Last Admin: 07/25/18 09:28 Dose: 60 mg Ondansetron HCl (Zofran Inj) 4 mg IV.PUSH Q6H PRN PRN Reason: NAUSEA/VOMITING Last Admin: 07/25/18 14:32 Dose: 4 mg Pantoprazole Sodium (Protonix Inj) 40 mg IV.PUSH Q12H [facility] Last Admin: 07/25/18 09:28 Dose: 40 mg Sodium Chloride (Ns Flush) 2 ml IV.FLUSH BID [facility] Last Admin: 07/25/18 09:28 Dose: 2 ml Sodium Chloride (Ns Flush) 2 ml IV.FLUSH PRN PRN PRN Reason: FLUSH AFTER USING IV ACCESS Last Admin: 07/21/18 14:51 Dose: 2 ml Exam Vital signs: Vital Signs 07/24/18 20:00 07/25/18 00:00 07/25/18 08:00 Temperature 98.5 F 98.9 F 99.1 F Pulse Rate 92 H 94 H 89 Respiratory Rate 22 22 17 Blood Pressure 143/68 H 149/72 H 104/68 Pulse Oximetry 93 L 92 L 92 L 07/25/18 12:00 07/25/18 16:00 Temperature 97.8 F 98.2 F Pulse Rate 91 H 99 H Respiratory Rate 17 17 Blood Pressure 142/69 H 100/67 Pulse Oximetry 93 L 91 L Intake & Output 07/25/18 07/25/18 07/26/18 06:59 18:59 06:59 Intake Total 1440 / 1440 1300 / 1300 Output Total 1800 / 1800 900 / 900 Balance -360 / -360 400 / 400 Weight 69.7 kg Intake: IV 1200 / 1200 1100 / 1100 D5W/1/2 NS Inj 1,000 ML @ 75 1200 / 1200 800 / 800 mls/hr IV.CONT .[id number] [facility] Rx# :[id number] KCl 20 mEq Premix Inj 20 meq In 100 / 100 100 ml @ 50 mls/hr IV.SIG UNSCH PRN Rx#:[id number] Rocephin Inj 1,000 MG In NS Inj 200 / 200 100 ML @ 200 mls/hr IV.SIG Q12H [facility] Rx#:[id number] Oral 240 / 240 200 / 200 Output: Urine 900 / 900 Urine Amount (Catheter) 1800 / 1800 Indwelling Urethral Catheter 1800 / 1800 Other: Date of Last Bowel Movement 07/24/18 07/24/18 # Bowel Movements 2 Results - Lab Results 07/24/18 07:00 07/25/18 17:28 Most recent lab results Calcium 7.3 mg/dL (8.5-10.1) L* 07/25/18 09:02 Phosphorus 3.8 mg/dL (2.5-4.9) 07/24/18 07:00 Assessment and Plan - Assessment (1) Acute kidney injury Code(s): N17.9 - Acute kidney failure, unspecified Status: Acute (2) Hypertension Code(s): I10 - Essential (primary) hypertension Status: Acute (3) Abscess Code(s): L02.91 - Cutaneous abscess, unspecified Status: Acute - Plan Patient seen and examine, agree with above. Patient develop DILAN. Possibly Contrast related ATN. Creatinine was 0.99 in 2016. Follow the urine out put and BMP.
[2018-07-23 16:59] LABS: Creatinine,Urine Random 60 mg/dL (27-300)
--- NOTE | 2018-07-23 21:49 | US ---
EXAM DATE: 07/23/2018 12:00 AM EDT AGE/SEX: 78 years / Female INDICATIONS: Increased BUN/Creatnine. CLINICAL DATA: This is the patient's initial encounter. Patient reports that signs and symptoms have been present for 1 day and indicates a pain score of 0/10. MEDICAL/SURGICAL HISTORY: . Increased lab values. None. COMPARISON: POI, CT ABDOMEN AND PELVIS W/ CONTRAST, 07/19/2018. . MEASUREMENTS: Right Kidney:__9.6 x 4.7 x 4.6 cm Left Kidney:__10.4 x 5.5 x 5.0 cm FINDINGS: Right Kidney: Normal echotexture and cortical thickness. No mass or hydronephrosis. Left Kidney: Normal echotexture and cortical thickness. No mass or hydronephrosis. Bladder: Odonnell catheter is present. Bladder decompressed. Other: Small left pleural effusion. 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 Common bile d uct is distended measuring up to 11 mm without a focal abnormality. There is no sonographic Pineda si gn. CONCLUSION: 1. Unremarkable renal ultrasound examination. Specifically, no sonographic evidence for obstructive uropathy. 2. 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 3. Prominence of the common bile duct measuring up to 11 mm. Etiology is unclear. No significant abn ormality is noted on provided ultrasound images nor recent CT exam. Electronically signed by: José Manuel Garcia MD 07/23/2018 9:47 PM EDT
[2018-07-24] MEDS: Dextrose 5%/NaCl 0.45% Inj 1,000 ML IV.CONT SCH ×4 (03:28→15:59)
[2018-07-24 07:52] LABS: Hematocrit 32.6 % (35.0-46.0); Hemoglobin 11.1 gm/dL (11.6-15.3); Mean Corpuscular HGB Conc 34.1 % (32.0-36.0); Mean Corpuscular Hemoglobin 31.2 pg (27.0-34.0); Mean Corpuscular Volume 91.3 fL (80.0-100.0); Mean Platelet Volume 10.5 fL (7.0-11.0); Platelet Count 189 th/mm3 (150-450); Red Blood Count 3.57 mil/mm3 (4.00-5.30); Red Cell Distribution Width 13.9 % (11.6-17.2); White Blood Count 9.6 th/mm3 (4.0-11.0)
[2018-07-24 07:55] LABS: Albumin 2.5 g/dL (3.4-5.0); Calcium 7.5 mg/dL (8.5-10.1); Carbon Dioxide 22.8 meq/L (21.0-32.0); Phosphorus 3.8 mg/dL (2.5-4.9); Potassium 3.4 meq/L (3.5-5.1)
--- NOTE | 2018-07-24 13:23 | P.PNCS ---
Subjective Colorectal Surgery Post Op Day #: 3 Interval history: Pt says she's not eating. Still some nausea. May need EGD. Wound draining copious amounts dressings off Objective Result Diagrams: 07/24/18 07:00 07/24/18 07:00 Objective Remarks: Abd: soft,non tender. Wound with colocutaneous fistula since diet. Assessment and Plan - Plan Non Oliguric renal failure- secondary to poor oral intake and IV contrast dye on 07/19/18 and previously. No renal obstruction on that CT scan. Nausea continues,but less No pain. D/C Flagyl Renal consult PT consult Renal diet Remains off Losartan until seen by Renal. Needs drainage bag back on pt Check calorie counts,if unable to eat will need GI consult and EGD
--- NOTE | 2018-07-24 15:33 | P.PNWCN ---
Wound Care Nurse Consult Description: Wound consult ordered by for wound management. Recommendation: 1. Cleanse abdominal surgical wound with normal saline pat dry. 2. Apply thick even layer of Calazime cream to periwound. 3. Apply cut to fit wound drainage system as needed for dislodgement. 5. Please feel free to contact wound care team if treatment fails or wound worsens. Additional information: Follow up of wound management.Wound drainage system applied for exudate management.
--- NOTE | 2018-07-24 16:16 | P.PNNP ---
Subjective Interval history: Denies any shortness of breath, chest pain, or vomiting. Having some nausea but starting to eat more. Creatinine continues to improve at 3.66. <Mely Espinoza - Last Filed: 07/24/18 16:10> Physical Exam Vital signs: Vital Signs 07/23/18 20:00 07/24/18 00:00 07/24/18 08:00 Temperature 98.4 F 98.9 F 98.7 F Pulse Rate 92 H 83 90 Respiratory Rate 18 18 17 Blood Pressure 147/73 H 138/67 133/67 Pulse Oximetry 94 L 93 L 92 L 07/24/18 12:00 Temperature 98.4 F Pulse Rate 90 Respiratory Rate 17 Blood Pressure 138/65 Pulse Oximetry 93 L Intake & Output 07/23/18 07/24/18 07/24/18 18:59 06:59 18:59 Intake Total 1850 / 1850 1440 / 1440 1100 / 1100 Output Total 375 / 375 1300 / 1300 1000 / 1000 Balance 1475 / 1475 140 / 140 100 / 100 Weight 68.5 kg 69.9 kg Intake: IV 1100 / 1100 1100 / 1100 1100 / 1100 D5W/1/2 NS Inj 1,000 ML @ 150 1000 / 1000 1000 / 1000 1000 / 1000 mls/hr IV.CONT .Q6H40M [facility] OF [facility] Rx#: [id number] Rocephin Inj 1,000 MG In NS Inj 100 / 100 100 / 100 100 / 100 100 ML @ 200 mls/hr IV.SIG Q12H [facility] Rx#:[id number] Oral 750 / 750 340 / 340 Output: Urine Amount (Catheter) 375 / 375 1300 / 1300 1000 / 1000 Indwelling Urethral Catheter 375 / 375 1300 / 1300 1000 / 1000 Other: # Voids 7 1 Date of Last Bowel Movement 07/22/18 07/22/18 # Bowel Movements 1 Narrative: GENERAL: Alert and oriented. SKIN: Warm and dry. Dressing in right lower extremity NECK: Supple, trachea midline. No JVD. CARDIOVASCULAR: Regular rate and rhythm without murmurs, gallops, or rubs. RESPIRATORY: Breath sounds equal bilaterally. No accessory muscle use. GASTROINTESTINAL: Abdomen soft, non-tender. MUSCULOSKELETAL: No cyanosis, or edema. BACK: Nontender without obvious deformity. No CVA tenderness. - Urinary Catheter Management Indwelling Urethral Catheter Cath placed during this visit: yes Reason for continuing: Hourly intake/output Insertion date: 07/21/18 Insertion time: 08:30 <Mely Espinoza - Last Filed: 07/24/18 16:10> Vital signs: Vital Signs 07/24/18 20:00 07/25/18 00:00 07/25/18 08:00 Temperature 98.5 F 98.9 F 99.1 F Pulse Rate 92 H 94 H 89 Respiratory Rate 22 22 17 Blood Pressure 143/68 H 149/72 H 104/68 Pulse Oximetry 93 L 92 L 92 L 07/25/18 12:00 07/25/18 16:00 Temperature 97.8 F 98.2 F Pulse Rate 91 H 99 H Respiratory Rate 17 17 Blood Pressure 142/69 H 100/67 Pulse Oximetry 93 L 91 L Intake & Output 07/25/18 07/25/18 07/26/18 06:59 18:59 06:59 Intake Total 1440 / 1440 1300 / 1300 Output Total 1800 / 1800 900 / 900 Balance -360 / -360 400 / 400 Weight 69.7 kg Intake: IV 1200 / 1200 1100 / 1100 D5W/1/2 NS Inj 1,000 ML @ 75 1200 / 1200 800 / 800 mls/hr IV.CONT .[id number] [facility] Rx# :[id number] KCl 20 mEq Premix Inj 20 meq In 100 / 100 100 ml @ 50 mls/hr IV.SIG UNSCH PRN Rx#:[id number] Rocephin Inj 1,000 MG In NS Inj 200 / 200 100 ML @ 200 mls/hr IV.SIG Q12H [facility] Rx#:[id number] Oral 240 / 240 200 / 200 Output: Urine 900 / 900 Urine Amount (Catheter) 1800 / 1800 Indwelling Urethral Catheter 1800 / 1800 Other: Date of Last Bowel Movement 07/24/18 07/24/18 # Bowel Movements 2 - Urinary Catheter Management Indwelling Urethral Catheter Cath placed during this visit: no <Gracy Leo - Last Filed: 07/25/18 19:43> Assessment and Plan - Assessment (1) Acute kidney injury Code(s): N17.9 - Acute kidney failure, unspecified Status: Acute (2) Hypertension Code(s): I10 - Essential (primary) hypertension Status: Acute (3) Abscess Code(s): L02.91 - Cutaneous abscess, unspecified Status: Acute - Plan Acute kidney with creatinine of 4.27, potassium level of 4.7, and HCO3 of 23.2 on day of consult On admission creatinine was 5.98 so has been improving. No previous history of kidney disease and creatinine noted to be 0.99 on 11/2016. Agree that acute kidney injury most likely ATN related contrast induced nephropathy along with dehydration. FeNA 5.11 % suggestive of ATN Continue IVF administration decreased to avoid fluid overload. Keep indwelling Odonnell catheter to maintain strict I+O. Avoid any nephrotoxic agents including NSAIDS, ARBs, IV contrast, and aminoglycosides Will follow urinary output and bmp. <Mely Espinoza - Last Filed: 07/24/18 16:10> - Assessment (1) Acute kidney injury Code(s): N17.9 - Acute kidney failure, unspecified Status: Acute (2) Hypertension Code(s): I10 - Essential (primary) hypertension Status: Acute (3) Abscess Code(s): L02.91 - Cutaneous abscess, unspecified Status: Acute - Plan Patient seen and examine, agree with above. Creatinine gradually improving, Continue IVF, to encourage oral intake. <Gracy Leo - Last Filed: 07/25/18 19:43>
[2018-07-25] MEDS: Dextrose 5%/NaCl 0.45% Inj 1,000 ML IV.CONT SCH (03:22)
--- NOTE | 2018-07-25 07:49 | P.PNCS ---
Subjective Colorectal Surgery Post Op Day #: 4 Interval history: Appreciate Nephrology. Pt with intractable Nausea and dry heaves. Denies pain. [place]lein GB on prior CTs. Unable to eat. Objective Result Diagrams: 07/24/18 07:00 07/24/18 07:00 Objective Remarks: Abd: soft,non tender. Wound with small output at present Assessment and Plan - Plan S/P I&D of 4cm diverticular abscess. Recent ARF improving. Intractable N&V. Will recheck CT without contrast Will consult GI to R/O PUD,Cholecystitis etc. Dr Shankar familiar with pt if GB needs surgery acutely Pt will need nutrition soon.
[2018-07-25] MEDS: Pantoprazole Inj 40 MG Vial IV.PUSH SCH ×2 (09:28→22:19)
[2018-07-25 10:15] LABS: Calcium 7.3 mg/dL (8.5-10.1)
[2018-07-25 10:29] LABS: Total Protein 5.5 g/dL (6.4-8.2)
[2018-07-25 10:31] LABS: Potassium 2.9 meq/L (3.5-5.1)
--- NOTE | 2018-07-25 11:15 | CT ---
EXAM DATE: 07/25/2018 8:56 AM EDT AGE/SEX: 78 years / Female INDICATIONS: Nausea, abscess on prior study at [place] CLINICAL DATA: This is the patient's initial encounter. Patient reports that signs and symptoms have been present for 1 day and indicates a pain score of 2/10. MEDICAL/SURGICAL HISTORY: Hypertension. None. RADIATION DOSE: 6.57 CTDI (mGy) COMPARISON: POI, CT ABDOMEN AND PELVIS W/ CONTRAST, 07/19/2018. . TECHNIQUE: Multiple contiguous axial images were obtained through the abdomen. Images were obtained using multiple row detector helical technique. Using automated exposure control and adjustment of the mA and/or kV according to patient size, radiation dose was kept as low as reasonably achievable to o btain optimal diagnostic quality images. DICOM format image data is available electronically for rev iew and comparison. Lack of IV contrast limits the diagnosis for certain organ pathology. FINDINGS: Lower Lungs: The visualized lower lungs are clear. New small left pleural effusion. 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 No dilated biliary ducts. No evidence of ascites. Spleen: Homogeneous density without enlargement. Pancreas: Unremarkable without mass or calcification. Kidneys: Normal in size and shape. No evidence of mass or hydronephrosis. Adrenal Glands: Unremarkable. Aorta: Atherosclerotic changes. No aneurysmal dilatation. . Bowel/Mesentery: The bowel gas pattern is within normal limits. There is no evidence to suggest mech anical obstruction. There continues to be diffuse scattered diverticulosis throughout the colon. Ther e continues to be some residual thickening of the sigmoid colon suggestive of some diverticulitis. Ho wever, there has been some improvement in the previously noted focal abscess in the left lower quadra nt. There is some residual focal inflammatory tissue remaining without a loculated fluid collection o r air collection. The focal inflammatory area measures about 3 cm in the left lower quadrant. There c ontinues to be a very small either inflamed diverticula or diverticular abscess adjacent the sigmoid colon in the left lower quadrant which is not significantly changed compared to the prior study. No d efinite free air is seen... No significant free fluid is seen in the pelvis. The overall appearance c ompared to the prior study appears to be improved. Abdominal Wall: Intact. Retroperitoneum: No evidence of adenopathy in the retrocrural, para-aortic, or deep pelvic regions. Bladder: Odonnell catheter in urinary bladder. Reproductive Organs: No abnormal masses or calcifications seen. Inguinal: The inguinal region is unremarkable without evidence of adenopathy. Bony Structures: Stable bony degenerative changes. CONCLUSION: 1. Compared to the prior exam there has been some improvement with patient's diverticulitis involvin g the sigmoid colon. There has been improvement with the focal loculated abscess in the left lower qu adrant. The previously noted loculated fluid and air collection has resolved to some focal inflammato ry changes measuring about 3 cm. 2. Stable appearance of the liver demonstrate multiple hepatic cysts as well as a porcelain gallblad ilya. Electronically signed by: Jackson Henriquez MD 07/25/2018 11:13 AM EDT
--- NOTE | 2018-07-25 11:31 | P.PNNP ---
Subjective Interval history: Having increased nausea today. Creatinine continues to improve at 3.03. IVF infusing. Had CT today without contrast. <Mely Espinoza - Last Filed: 07/25/18 15:04> Physical Exam Vital signs: Vital Signs 07/24/18 12:00 07/24/18 16:00 07/24/18 20:00 Temperature 98.4 F 98.1 F 98.5 F Pulse Rate 90 101 H 92 H Respiratory Rate 17 17 22 Blood Pressure 138/65 133/71 143/68 H Pulse Oximetry 93 L 94 L 93 L 07/25/18 00:00 07/25/18 08:00 Temperature 98.9 F 99.1 F Pulse Rate 94 H 89 Respiratory Rate 22 17 Blood Pressure 149/72 H 104/68 Pulse Oximetry 92 L 92 L Intake & Output 07/24/18 07/25/18 07/25/18 18:59 06:59 18:59 Intake Total 1320 / 1320 1440 / 1440 100 / 100 Output Total 1400 / 1400 1800 / 1800 Balance -80 / -80 -360 / -360 100 / 100 Weight 69.7 kg Intake: IV 1200 / 1200 1200 / 1200 100 / 100 D5W/1/2 NS Inj 1,000 ML @ 75 1000 / 1000 1200 / 1200 mls/hr IV.CONT .[id number] [facility] Rx# :[id number] Rocephin Inj 1,000 MG In NS Inj 200 / 200 100 / 100 100 ML @ 200 mls/hr IV.SIG Q12H [facility] Rx#:[id number] Oral 120 / 120 240 / 240 Output: Urine 400 / 400 Urine Amount (Catheter) 1000 / 1000 1800 / 1800 Indwelling Urethral Catheter 1000 / 1000 1800 / 1800 Other: Date of Last Bowel Movement 07/24/18 07/24/18 # Bowel Movements 2 Narrative: GENERAL: Alert and oriented. SKIN: Warm and dry. Dressing in right lower extremity NECK: Supple, trachea midline. No JVD. CARDIOVASCULAR: Regular rate and rhythm without murmurs, gallops, or rubs. RESPIRATORY: Breath sounds equal bilaterally. No accessory muscle use. GASTROINTESTINAL: Abdomen soft, non-tender. MUSCULOSKELETAL: No cyanosis, or edema. BACK: Nontender without obvious deformity. No CVA tenderness. - Urinary Catheter Management Indwelling Urethral Catheter Cath placed during this visit: yes Reason for continuing: Hourly intake/output Insertion date: 07/21/18 Insertion time: 08:30 <Mely Espinoza - Last Filed: 07/25/18 15:04> Vital signs: Vital Signs 07/26/18 00:00 07/26/18 08:00 07/26/18 11:41 Temperature 99.2 F 97.5 F L 97.6 F Pulse Rate 92 H 102 H 93 H Respiratory Rate 22 20 20 Blood Pressure 136/66 129/69 137/67 Pulse Oximetry 93 L 94 L 92 L 07/26/18 16:00 Temperature 98.1 F Pulse Rate 88 Respiratory Rate 20 Blood Pressure 122/75 Pulse Oximetry 94 L Intake & Output 07/26/18 07/26/18 07/27/18 06:59 18:59 06:59 Intake Total 1490 / 1490 200 / 200 Output Total 600 / 600 Balance 890 / 890 200 / 200 Intake: IV 1010 / 1010 200 / 200 KCl Inj 20 MEQ In D5W/1/2 NS 1010 / 1010 Inj 1,000 ML @ 75 mls/hr IV. CONT .[id number] [facility] Rx#:[id number] Rocephin Inj 1,000 MG In NS Inj 200 / 200 100 ML @ 200 mls/hr IV.SIG Q12H [facility] Rx#:[id number] Oral 480 / 480 Output: Urine 600 / 600 Other: # Voids 1 - Urinary Catheter Management Indwelling Urethral Catheter Cath placed during this visit: no <Gracy Leo - Last Filed: 07/26/18 21:33> Assessment and Plan - Assessment (1) Acute kidney injury Code(s): N17.9 - Acute kidney failure, unspecified Status: Acute (2) Hypertension Code(s): I10 - Essential (primary) hypertension Status: Acute (3) Abscess Code(s): L02.91 - Cutaneous abscess, unspecified Status: Acute - Plan Acute kidney with creatinine of 4.27, potassium level of 4.7, and HCO3 of 23.2 on day of consult On admission creatinine was 5.98 so has been improving. No previous history of kidney disease and creatinine noted to be 0.99 on 11/2016. Agree that acute kidney injury most likely ATN related contrast induced nephropathy along with dehydration. FeNA 5.11 % suggestive of ATN Continue IVF administration with nausea and poor intake Keep indwelling Odonnell catheter to maintain strict I+O. Avoid any nephrotoxic agents including NSAIDS, ARBs, IV contrast, and aminoglycosides Hypokalemia, replacement given will add to IVF's Hypocalcemia will order oral replacement. Will follow urinary output and bmp. <Mely Espinoza - Last Filed: 07/25/18 15:04> - Assessment (1) Acute kidney injury Code(s): N17.9 - Acute kidney failure, unspecified Status: Acute (2) Hypertension Code(s): I10 - Essential (primary) hypertension Status: Acute (3) Abscess Code(s): L02.91 - Cutaneous abscess, unspecified Status: Acute - Plan Patient seen and examined, agree with above. Creatinine improving. Encourage oral intake. Continue IVF. <Gracy Leo - Last Filed: 07/26/18 21:33>
[2018-07-25] MEDS: Potassium Chloride Inj 20 MEQ in Dextrose 5%/NaCl 0.45% Inj 1,000 ML IV.CONT SCH (16:28)
--- NOTE | 2018-07-25 17:13 | P.DIET ---
Nutritional Evaluation Type of nutrition evaluation: initial Screening comments: JORGE Maza reports has ordered a Calorie Count for this pt. Subjective Oral Diet Tolerance Assessment Indicates: Nausea Subjective Comments: Pt visited after lunch today. Pt says she cant eat r/t nausea; however, says she will try. Initially pt refused breakfast and lunch today but requested a few items-mashed potatoes, green beans and a muffin for a late lunch. Pt provided w/a can of Suplena oral nutrition supplement to try. Pt informed a Calorie Count has been started. Objective - Diagnosis DILAN, Diverticulitis w/Abscess - Objective % IBW: 121 Body Weight Used for Calculations: Actual (Initial wt(07/21)60.5kg) Energy Needs - Lower Range (kCal/kg): 25 Energy Needs - Upper Range (kCal/kg): 30 Lower Limit kCal/kg (kCals): 1,513 Upper Limit kCal/kg (kCals): 1,815 Lower Limit Protein Factor (Grams per Kg): 0.7 Upper Limit Protein Factor (Grams per Kg): 0.9 Lower Protein Needs (Protein): 45 Upper Protein Needs (Protein): 55 Dietitian Reviewed in Medical Record: Current diet, Curent medications, Intake & Output, Labs, Medical history Diet Order: 2gNa Oral Diet Intake Amount: Poor <50% Objective Comments: PMH includes: Diverticultits w/abscess and impending colocutaneous fistula; colorectal surgery; HTN Labs include: Creatinine 3.66, estGFR 12 LBM 07/24, +UOP 2800ml Assessment Assessment: Pt is at nutritional risk r/t diagnosis and no po intake w/recent wt loss. Nursing order for Calorie Count(?). Calorie Count started 07/25 through 07/27 w/ Nutrition Recs to follow 07/27. TRIAL of Suplena oral supplement(= 425 kcal and 10.6g protein per serving). Labs reviewed-monitor renal labs closely. Recommendations: 1. MD Nursing order for Calorie Count(?) 2. Calorie Count started 07/25 through 07/27 w/Nutrition Recs to follow 07/27 3. TRIAL of Suplena oral supplement Dietitian to Monitor: Lab values, Electrolytes, Renal labs, Supplement acceptance, Intake & Output, Diet tolerance, Weight change, PO Intake, Medical course
[2018-07-25] MEDS: Calcium Carbonate 500 MG Tablet PO SCH (22:18)
[2018-07-26] MEDS: Potassium Chloride Inj 20 MEQ in Dextrose 5%/NaCl 0.45% Inj 1,000 ML IV.CONT SCH ×2 (06:14→18:13)
[2018-07-26] MEDS: Pantoprazole Inj 40 MG Vial IV.PUSH SCH ×2 (08:13→20:18)
[2018-07-26] MEDS: Calcium Carbonate 500 MG Tablet PO SCH ×2 (08:14→20:18)
[2018-07-26 08:32] LABS: Albumin 2.3 g/dL (3.4-5.0); Phosphorus 2.6 mg/dL (2.5-4.9); Potassium 3.2 meq/L (3.5-5.1)
[2018-07-26 08:47] LABS: Calcium 7.3 mg/dL (8.5-10.1)
--- NOTE | 2018-07-26 10:04 | MB ---
cc: Rex Armas MD DATE: 07/26/2018 REQUESTING PHYSICIAN: Dr. Dexter Gray. REASON FOR CONSULTATION: Nausea, vomiting. HISTORY OF PRESENT ILLNESS: This is a 78-year-old female with past medical history of hypertension and diverticulosis and a distant history of diverticulitis. She was admitted to the hospital with a complaint of worsening abdominal pain, nausea, vomiting. Underwent further workup, was found to have an abscess in the left lower quadrant, approximately 4 cm attached to the abdominal wall, along with acute kidney injury. She was placed on appropriate antibiotics and she was brought in to undergo surgical intervention to drain the abscess and continue IV antibiotics. On 07/21/2018, she underwent incision and drainage of the abscess. She has been on appropriate antibiotics since and has been monitored by nephrology due to acute kidney injury. Throughout the admission, she has been complaining of some mild occasional nausea and vomiting. Over the last several days despite appropriate treatment, she has been continuing to have nausea and dry heaving and reduced oral intake. Thus, GI was consulted to help further workup. 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 PAST MEDICAL HISTORY: Diverticulosis, hypertension. PAST SURGICAL HISTORY: Recent surgery for diverticular abscess. ALLERGIES: FLAGYL CAUSES NAUSEA, VOMITING. HOME MEDICATIONS: Losartan. FAMILY HISTORY: No GI malignancy. SOCIAL HISTORY: Denies any regular tobacco, alcohol, or drug abuse. REVIEW OF SYSTEMS: A 12-point review of systems was obtained by mo, which is negative or noncontributory except for the above-mentioned in the HPI. PHYSICAL EXAMINATION: VITAL SIGNS: 99.2, heart rate 92, respirations 22, blood pressure 136/86, O2 saturation 98% on room air. GENERAL: Alert, oriented. No acute distress. HEENT: Pupils equal, round, reactive to light. Atraumatic. NECK: Supple. No carotid bruits noted. No cervical tenderness. LYMPH NODES: No abnormal lymphadenopathy. CARDIOVASCULAR: Regular rate and rhythm. No murmurs heard. LUNGS: Clear to auscultation bilaterally. No wheezing. ABDOMEN: Soft, mildly tender. No rebound appreciated. MUSCULOSKELETAL: Equal upper and lower extremity strength. GENITOURINARY: No CV angle tenderness identified. MUSCULOSKELETAL: Upper and lower extremities equal. NEUROLOGIC: Alert and oriented. No focal deficits. PSYCHIATRIC: Cooperative, appropriate mood and affect. LABORATORY DATA: WBC 9.6, hemoglobin 11.1, platelet count of 189. Sodium 144, potassium 2.9 improved to 3.5, chloride 111, bicarbonate 26, BUN 13, creatinine 3.03, total protein 5.5. IMPRESSION: 1. Nausea/vomiting, may be multifactorial and secondary to reflux including erosive esophagitis, gastritis, possibly peptic ulcer disease, as well as medical illness including infectious process, acute renal failure versus medication induced, as well as the possibility of biliary causes such as the patient's known history of porcelain gallbladder. 2. Acute diverticulitis with a diverticular abscess, status post surgical drainage. 3. Acute kidney injury, clinically improving. RECOMMENDATIONS 1. Protonix 40 mg IV b.i.d. 2. We will plan for upper endoscopy to rule out any occult GI related issues that could be leading to her symptoms. 3. Continue her management with IV antibiotics and nephrology care in regard to kidney disease. Thank you for allowing [facility] to participate in the care of this patient . we will follow along with you and make further recommendations as per the patient's clinical course. MD YVES Varghese/odilon , 07:44 AM , 07:53 AM
--- NOTE | 2018-07-26 13:43 | P.PNCS ---
Subjective Colorectal Surgery Post Op Day #: 5 Interval history: Appreciate GI and Renal. Will D/W Dr Armas and Dr Shankar. Feeling much better. Objective Result Diagrams: 07/24/18 07:00 07/26/18 07:21 Objective Remarks: Abd: soft,non tender. Wound with small output at present Assessment and Plan - Plan S/P I&D of 4cm diverticular abscess. Recent ARF improving. Intractable N&V. CT improved. Nausea improved. Will need interval colectomy and Cholecystectomy vs Cholecystectomy now Will D/W consultants
--- NOTE | 2018-07-26 15:55 | P.PNNP ---
Subjective Interval history: Nausea has improved today and able to tolerate some of her diet. Creatinine continues to improve at 2.8. <Mely Espinoza - Last Filed: 07/26/18 15:51> Physical Exam Vital signs: Vital Signs 07/25/18 16:00 07/25/18 20:00 07/26/18 00:00 Temperature 98.2 F 98.5 F 99.2 F Pulse Rate 99 H 97 H 92 H Respiratory Rate 17 20 22 Blood Pressure 100/67 111/74 136/66 Pulse Oximetry 91 L 94 L 93 L 07/26/18 08:00 07/26/18 11:41 Temperature 97.5 F L 97.6 F Pulse Rate 102 H 93 H Respiratory Rate 20 20 Blood Pressure 129/69 137/67 Pulse Oximetry 94 L 92 L Intake & Output 07/25/18 07/26/18 07/26/18 18:59 06:59 18:59 Intake Total 1300 / 1300 1490 / 1490 100 / 100 Output Total 900 / 900 600 / 600 Balance 400 / 400 890 / 890 100 / 100 Intake: IV 1100 / 1100 1010 / 1010 100 / 100 D5W/1/2 NS Inj 1,000 ML @ 75 800 / 800 mls/hr IV.CONT .[id number] [facility] Rx# :[id number] KCl Inj 20 MEQ In D5W/1/2 NS 1010 / 1010 Inj 1,000 ML @ 75 mls/hr IV. CONT .[id number] [facility] Rx#:[id number] KCl 20 mEq Premix Inj 20 meq In 100 / 100 100 ml @ 50 mls/hr IV.SIG UNSCH [facility]N Rx#:[id number] Rocephin Inj 1,000 MG In NS Inj 200 / 200 100 / 100 100 ML @ 200 mls/hr IV.SIG Q12H [facility] Rx#:[id number] Oral 200 / 200 480 / 480 Output: Urine 900 / 900 600 / 600 Other: # Voids 1 Date of Last Bowel Movement 07/24/18 # Bowel Movements 2 Narrative: GENERAL: Alert and oriented. SKIN: Warm and dry. Dressing in right lower extremity NECK: Supple, trachea midline. No JVD. CARDIOVASCULAR: Regular rate and rhythm without murmurs, gallops, or rubs. RESPIRATORY: Breath sounds equal bilaterally. No accessory muscle use. GASTROINTESTINAL: Abdomen soft, non-tender. MUSCULOSKELETAL: No cyanosis, or edema. BACK: Nontender without obvious deformity. No CVA tenderness. - Urinary Catheter Management Indwelling Urethral Catheter Cath placed during this visit: yes Reason for continuing: Hourly intake/output Insertion date: 07/21/18 Insertion time: 08:30 <Mely Espinoza - Last Filed: 07/26/18 15:51> Vital signs: Intake & Output 07/27/18 07/28/18 07/28/18 18:59 06:59 18:59 Intake Total 320 / 320 Balance 320 / 320 Intake: Tube Feeding 120 / 120 Water Bolus Amount 200 / 200 - Urinary Catheter Management Indwelling Urethral Catheter Cath placed during this visit: no <Gracy Leo - Last Filed: 07/28/18 18:36> Assessment and Plan - Assessment (1) Acute kidney injury Code(s): N17.9 - Acute kidney failure, unspecified Status: Acute (2) Hypertension Code(s): I10 - Essential (primary) hypertension Status: Acute (3) Abscess Code(s): L02.91 - Cutaneous abscess, unspecified Status: Acute - Plan Acute kidney with creatinine of 4.27, potassium level of 4.7, and HCO3 of 23.2 on day of consult On admission creatinine was 5.98 so has been improving. No previous history of kidney disease and creatinine noted to be 0.99 on 11/2016. Agree that acute kidney injury most likely ATN related contrast induced nephropathy along with dehydration. FeNA 5.11 % suggestive of ATN Continue IVF administration, Nausea is improving. Oral fluids encouraged Avoid any nephrotoxic agents including NSAIDS, ARBs, IV contrast, and aminoglycosides Hypokalemia, replacement added. Will follow urinary output and bmp. <Mely Espinoza - Last Filed: 07/26/18 15:51> - Assessment (1) Acute kidney injury Code(s): N17.9 - Acute kidney failure, unspecified Status: Acute (2) Hypertension Code(s): I10 - Essential (primary) hypertension Status: Acute (3) Abscess Code(s): L02.91 - Cutaneous abscess, unspecified Status: Acute - Plan Patient seen and examine, agree with above. Creatinine continue to improve. Encourage oral intake. <Jumani,Layne Q - Last Filed: 07/28/18 18:36>
[2018-07-26] MEDS: KCL 20 mEq/D5W/NaCl 0.45% Inj 1,000 ML IV.CONT SCH ×2 (18:14→22:28)
[2018-07-27] MEDS: Calcium Carbonate 500 MG Tablet PO SCH (09:02)
[2018-07-27] MEDS: Pantoprazole Inj 40 MG Vial IV.PUSH SCH (09:02)
[2018-07-27 09:15] VITALS: RESP 20; O2SAT 94
--- NOTE | 2018-07-27 13:18 | P.PNGI ---
Subjective Interval history: Pt with diverticular abscess, s/p OR/drainage. chronic nausea, much improved. tolerating diet well plans for possible discharge today per nurse. Physical Exam Vital signs: Vital Signs 07/26/18 16:00 07/26/18 20:00 07/27/18 00:00 Temperature 98.1 F 97.9 F 97.7 F Pulse Rate 88 102 H 92 H Respiratory Rate 20 19 19 Blood Pressure 122/75 141/66 H 119/60 Pulse Oximetry 94 L 93 L 93 L 07/27/18 08:00 Temperature 98.1 F Pulse Rate 92 H Respiratory Rate 20 Blood Pressure 145/61 H Pulse Oximetry 94 L Intake & Output 07/26/18 07/27/18 07/27/18 18:59 06:59 18:59 Intake Total 200 / 200 1590 / 1590 320 / 320 Balance 200 / 200 1590 / 1590 320 / 320 Weight 69.7 kg Intake: IV 200 / 200 1110 / 1110 KCl Inj 20 MEQ In D5W/1/2 NS 1010 / 1010 Inj 1,000 ML @ 75 mls/hr IV. CONT .[id number] [facility] Rx#:[id number] Rocephin Inj 1,000 MG In NS Inj 200 / 200 100 / 100 100 ML @ 200 mls/hr IV.SIG Q12H [facility] Rx#:[id number] Oral 480 / 480 Tube Feeding 120 / 120 Water Bolus Amount 200 / 200 Other: # Voids 1 2 Date of Last Bowel Movement 07/26/18 - Constitutional no acute distress - Routine HEENT Exam Head: Present: normocephalic Eye: Present: EOMI ENT: Present: mucous membranes moist - Routine Neck Exam Present: supple - Routine Respiratory Exam Present: CTA bilaterally - Routine Cardiovascular Exam Present: RRR, S1, S2 - Routine Abdominal Exam Present: soft, normoactive bowel sounds. Absent: tenderness - Routine Neurological Exam Present: alert, oriented X3 - Urinary Catheter Management Indwelling Urethral Catheter Cath placed during this visit: yes Reason for continuing: Hourly intake/output Insertion date: 07/21/18 Insertion time: 08:30 Results - Labs CBC & Chem 7: 07/24/18 07:00 07/26/18 07:21 Assessment and Plan - Plan IMP: 1. Nausea and vomiting 2. diverticular abscess 3. Porcelain GB 4. DILAN - improving. PLAN: 1. diet as tolerated 2. because her symptoms were nearly resolved, she opted not to have egd 3. continue current care. 4. will sign off call for questions.
[2018-07-27 13:26] VITALS: BP 172/82; PULSE 85; TEMP 97.5
[2018-07-27] MEDS: KCL 20 mEq/D5W/NaCl 0.45% Inj 1,000 ML IV.CONT SCH (13:30)
--- NOTE | 2018-07-27 16:06 | P.DIET ---
Nutritional Evaluation Type of nutrition evaluation: follow-up Screening comments: JORGE Maza reports has ordered a Calorie Count for this pt. Subjective Oral Diet Tolerance Assessment Indicates: Nausea Subjective Comments: Pt. says she doesnt care for the Suplena supplement. Says her appetite is better. Objective - Diagnosis DILAN, Diverticulitis w/Abscess - Objective % IBW: 121 Body Weight Used for Calculations: Actual (Initial wt(07/21)60.5kg) Energy Needs - Lower Range (kCal/kg): 25 Energy Needs - Upper Range (kCal/kg): 30 Lower Limit kCal/kg (kCals): 1,513 Upper Limit kCal/kg (kCals): 1,815 Lower Limit Protein Factor (Grams per Kg): 0.7 Upper Limit Protein Factor (Grams per Kg): 0.9 Lower Protein Needs (Protein): 45 Upper Protein Needs (Protein): 55 Dietitian Reviewed in Medical Record: Current diet, Curent medications, Intake & Output, Labs, Medical history Diet Order: 2gNa Oral Diet Intake Amount: Poor <50% Objective Comments: PMH includes: Diverticultits w/abscess and impending colocutaneous fistula; colorectal surgery; HTN Labs include: Creatinine 2.87, estGFR 16 Feeding - kCal Count Day 1 kCal Intake: 585 Day 1 Protein Intake: 22 Day 2 kCal Intake: 460 Day 2 Protein Intake: 29 Assessment Assessment: Pt is at nutritional risk r/t diagnosis and no po intake w/recent wt loss. Nursing order for Calorie Count(?). Calorie Count started 07/25 through 07/27 w/ INADEQUATE PO INTAKE. PT averaged less than 50% po for kcals and protein. Pt's appetite has improved. Pt does not care for the Suplena oral supplement. Labs reviewed-monitor renal labs closely. Recommendations: 1. Calorie Count started 07/25 through 07/27 w/INADEQUATE PO INTAKE 2. Appetite improving-monitor 3.Pt does not care for Suplena supplement Dietitian to Monitor: Lab values, Electrolytes, Renal labs, Supplement acceptance, Intake & Output, Diet tolerance, Weight change, PO Intake, Medical course
--- NOTE | 2018-07-27 16:34 | P.PNCS ---
Subjective Interval history: afebrile, VSS UO good min from fistula Objective Result Diagrams: 07/24/18 07:00 07/26/18 07:21 Objective Remarks: Abd: soft,non tender. Wound with small output at present min tympany Assessment and Plan - Plan S/P I&D of 4cm diverticular abscess. Recent ARF improving. Intractable N&V. CT improved. Nausea improved. Will need interval colectomy and Cholecystectomy vs Cholecystectomy now Will D/W consultants DC plans
--- NOTE | 2018-07-27 16:40 | P.PNNP ---
Subjective Interval history: Patient seen alert, started eating better, no SOB. Physical Exam Vital signs: Vital Signs 07/26/18 20:00 07/27/18 00:00 07/27/18 08:00 Temperature 97.9 F 97.7 F 98.1 F Pulse Rate 102 H 92 H 92 H Respiratory Rate 19 19 20 Blood Pressure 141/66 H 119/60 145/61 H Pulse Oximetry 93 L 93 L 94 L 07/27/18 12:00 Temperature 97.5 F L Pulse Rate 85 Respiratory Rate 20 Blood Pressure 172/82 H Pulse Oximetry 94 L Intake & Output 07/26/18 07/27/18 07/27/18 18:59 06:59 18:59 Intake Total 200 / 200 1590 / 1590 320 / 320 Balance 200 / 200 1590 / 1590 320 / 320 Weight 69.7 kg Intake: IV 200 / 200 1110 / 1110 KCl Inj 20 MEQ In D5W/1/2 NS 1010 / 1010 Inj 1,000 ML @ 75 mls/hr IV. CONT .[id number] SERGEY Rx#:[id number] Rocephin Inj 1,000 MG In NS Inj 200 / 200 100 / 100 100 ML @ 200 mls/hr IV.SIG Q12H SERGEY Rx#:[id number] Oral 480 / 480 Tube Feeding 120 / 120 Water Bolus Amount 200 / 200 Other: # Voids 1 2 Date of Last Bowel Movement 07/26/18 Narrative: GENERAL: Alert and oriented. SKIN: Warm and dry. Dressing in right lower extremity NECK: Supple, trachea midline. No JVD. CARDIOVASCULAR: Regular rate and rhythm without murmurs, gallops, or rubs. RESPIRATORY: Breath sounds equal bilaterally. No accessory muscle use. GASTROINTESTINAL: Abdomen soft, non-tender. MUSCULOSKELETAL: No cyanosis, or edema. BACK: Nontender without obvious deformity. No CVA tenderness. - Urinary Catheter Management Indwelling Urethral Catheter Cath placed during this visit: yes Reason for continuing: Hourly intake/output Insertion date: 07/21/18 Insertion time: 08:30 Assessment and Plan - Assessment (1) Acute kidney injury Code(s): N17.9 - Acute kidney failure, unspecified Status: Acute (2) Hypertension Code(s): I10 - Essential (primary) hypertension Status: Acute (3) Abscess Code(s): L02.91 - Cutaneous abscess, unspecified Status: Acute - Plan Patient has further improvement in the Creatinine. BP is stable. Told to keep drinking more fluid. Now for discharge. Follow up with me in 2 weeks, patient will call for appointment.
== END 2018-07-27 18:00 | disposition home or self-care (01) ==
LOC: N07 15:39
PROVIDERS: ADMIT Colon & Rectal Surgery; ATTEND Colon & Rectal Surgery